=== PATIENT | female | born 1960 | race Caucasian/White ===

== ENCOUNTER 2021-08-16 20:00 | Inpatient (IN) | payer BC ==
[2021-08-16] MEDS ORDERED: Sodium Chloride 0.9% 10 ML Syringe FLUSH PRN (20:17)
[2021-08-16] MEDS ORDERED: Iopamidol 755 Mg/ML 75 ML Bottle IVPUSH ONE (20:35)
[2021-08-16] MEDS ORDERED: Sodium Chloride 0.9% 50 ML IV SCH (20:45)
[2021-08-16 20:59] LABS: ANION GAP 16.3 mmol/L (5-15); CHLORIDE,CL 100 mmol/L (98-107); SODIUM,NA 138 mmol/L (136-145)
--- NOTE | 2021-08-16 21:01 | EDM.PDOC ---
ED HPI GENERAL MEDICAL PROBLEM - General Chief Complaint: General Stated Complaint: Covid+, SOB, chest tightness Time Seen by Provider: 08/16/21 20:43 Source of Information: Reports: Patient History Limitations: Reports: No Limitations - History of Present Illness INITIAL COMMENTS - FREE TEXT/NARRATIVE: Patient presents with dyspnea and chest tightness. Symptoms started 5 days ago. The chest tightness has been intermittent; the dyspnea has been worsening today. She also has emphysema and asthma; she uses Combivent and albuterol inhalers. Yesterday she tested positive for coronavirus and today she got the antibody infusion. She has had some dry-heaves but no diarrhea. She is very tired. Not very achy. No fever. 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: Other (see below) Other Treatments [employer]DI[employer] POLICY SPECIALIST: inhalers - Related Data Allergies Allergy/AdvReac Type Severity Reaction Status Date / Time amoxicillin Allergy Cannot Verified 08/16/21 20:09 Remember amoxicillin trihydrate Allergy Nausea Verified 08/16/21 20:09 [From Augmentin] atorvastatin [From Lipitor] Allergy ANGIOEDEMA Verified 08/16/21 20:09 clavulanic acid Allergy Cannot Verified 08/16/21 20:09 Remember cyclobenzaprine Allergy UNKNOWN Verified 08/16/21 20:09 [From Flexeril] oxycodone Allergy Itching Verified 08/16/21 20:09 potassium clavulanate Allergy Nausea Verified 08/16/21 20:09 [From Augmentin] Home Meds: Home Meds Pseudoephedrine [Sudafed 12 Hour] 1 tab PO DAILY PRN 12/13/14 [History] SUMAtriptan 50 mg PO ASDIRECTED PRN 12/13/14 [History] sulfaSALAzine [Sulfasalazine] 500 mg PO BIDMEALS 12/13/14 [History] Albuterol [Ventolin HFA] 1 - 2 puff INH Q4HR PRN 08/29/15 [History] Escitalopram Oxalate 20 mg PO DAILY 06/20/17 [History] Omeprazole 20 mg PO BIDAC 06/20/17 [History] Verapamil HCl [Verapamil Sr] 240 mg PO DAILY 06/20/17 [History] buPROPion HCL [Wellbutrin Xl] 300 mg PO DAILY 06/20/17 [History] cloNIDine HCL [Catapres] 0.2 mg PO QAM 06/20/17 [History] Nystatin 5 ml PO DAILY 01/10/18 [History] Aspirin 81 mg PO DAILY 08/31/18 [History] Cholecalciferol (Vitamin D3) [Vitamin D3] 2,000 unit PO DAILY 08/31/18 [History] Fenofibrate Nanocrystallized [Fenofibrate] 145 mg PO DAILY 08/31/18 [History] Fluticasone Propionate [Flonase] 1 spray NASBOTH DAILY 08/31/18 [History] Hydrocodone/Acetaminophen [Hydrocodon-Acetaminophen 5-325] 7.5 - 325 mg PO Q6H PRN 08/31/18 [History] Ipratropium/Albuterol Sulfate [Combivent Respimat Inhal [place]] 1 puff IH Q4H PRN 08/31/18 [History] Montelukast [Singulair] 10 mg PO DAILY 08/31/18 [History] Albuterol/Ipratropium [DuoNeb 3.0-0.5 MG/3 ML] 3 ml INH QID PRN 08/16/21 [History] Benzonatate 200 mg PO Q8H PRN 08/16/21 [History] Calcium Carb, Citrate/Vit D3 [Calcium + D3 ER Tablet] 1 each PO DAILY 08/16/21 [History] Famotidine [Pepcid] 40 mg PO BEDTIME 08/16/21 [History] Fluticasone/Umeclidin/Vilanter [Trelegy Ellipta 200-62.5-25] 1 puff INH DAILY 08/16/21 [History] Levothyroxine 150 mcg PO ACBREAKFAST 08/16/21 [History] Lidocaine 2% [Xylocaine 2% Viscous] 15 ml SSPIT Q4H PRN 08/16/21 [History] Losartan Potassium 100 mg PO DAILY 08/16/21 [History] Non-Formulary Medication [NF Drug] 1 tab PO Q48H 08/16/21 [History] Non-Formulary Medication [NF Drug] 2 applic TOP BID PRN 08/16/21 [History] Topiramate 25 mg PO BEDTIME 08/16/21 [History] Vitamin B Complex [B Complex] 1 each PO DAILY 08/16/21 [History] cloNIDine [cloNIDine HCl] 0.1 mg PO QPM 08/16/21 [History] guaiFENesin [Mucinex] 600 mg PO BID 08/16/21 [History] methylPREDNISolone [Medrol Dose Pack] 4 mg PO ASDIRECTED 08/16/21 [History] tiZANidine [Zanaflex] 2 mg PO BEDTIME 08/16/21 [History] Past Medical History HEENT History: Reports: Allergic Rhinitis, Impaired Vision, Other (See Below), Sinusitis Other HEENT History: Recurrent Sinusitis secondary to her allergic rhinitis, patient wears glasses Cardiovascular History: Reports: High Cholesterol, Hypertension Respiratory History: Reports: Asthma, COPD, Intubation, Previous Other Respiratory History: Emphysema Gastrointestinal History: Reports: Cholelithiasis, Gastritis, GERD, Hiatal Hernia, PUD Other Gastrointestinal History: History of gastric ulcer and hiatal hernia with GERD and secondary esophagitis by EGD in August 2016 as below Genitourinary History: Reports: None 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 D defieciency Immunologic History: Reports: None Oncologic (Cancer) History: Reports: None Dermatologic History: Reports: None - Infectious Disease History Infectious Disease History: Reports: Chicken Pox - Past Surgical History HEENT Surgical History: Reports: Adenoidectomy, Naso-Sinus Surgery, Other (See Below), Oral Surgery, Tonsillectomy Female Surgical History: Reports: Hysterectomy, Other (See Below), Salpingo- Oophorectomy, Tubal Ligation Dermatological Surgical History: Reports: Other (See Below), Skin Biopsy - Past Imaging History Past Imaging History: Reports: Mammogram, Stress Testing, Sleep Study Social & Family History - Family History HEENT: Reports: Cataract, Other (See Below) Other HEENT Family History: Father with cataract surgery Cardiac: Reports: Bypass, CAD, Hypertension, SC, Other (See Below) Other Cardiac Family History: Parents with hypertension, mother with four-vessel bypass in her 60s with no apparent previous history of SC by patient history despite previous medical records, father did from an SC at age 82 Respiratory: Reports: Asthma, Other (See Below) Other Respiratory Family Hisory: Asthma in maternal aunt, brother, and sister : Reports: Other (See Below), Renal Disease/Insufficiency Other Family History: Maternal aunt with unknown type of renal disorder requiring nephrectomy Neurological: Reports: Alzheimers Disease, Cerebral Aneurysms, CVA, Dementia, Other (See Below) Other Neurological Family History: Sister with CVA secondary to cerebral aneurysm in her 40s, mother with organic brain syndrome Psychiatric: Reports: Anxiety, Depression, Other (See Below) Other Psychiatric Family History: Anxiety depression disorder in 2 daughters and her mother Endocrine/Metabolic: Reports: Diabetes, type II, IDDM, Other (See Below) Other Endocrine/Metabolic Family History: Mother with IDDM Oncologic: Reports: Leukemia, Other (See Below) Other Oncologic Family History: Maternal aunt with unknown type of fatal cancer in her 60s, daughter with ALL at age 2 - Caffeine Use Caffeine Use: Reports: Coffee, Energy Drinks - Living Situation & Occupation Living situation: Reports: (First divorce in 1986 1 child from that relationship, second divorce in 1992 with child from that relationship), with Significant Other Occupation: Employed ([employer]) ED ROS GENERAL - Review of Systems Review Of Systems: See Below Constitutional: Reports: Malaise, Weakness, Fatigue. Denies: Fever, Chills HEENT: Denies: Ear Pain, Throat Pain, Vision Change Respiratory: Reports: Shortness of Breath, Wheezing, Cough Cardiovascular: Reports: Chest Pain (intermittent tightness for 5 days). Denies: Syncope Endocrine: Reports: Fatigue GI/Abdominal: Reports: Nausea. Denies: Abdominal Pain, Constipation, Diarrhea : Denies: Dysuria, Flank Pain Musculoskeletal: Reports: No Symptoms Skin: Denies: Cyanosis, Jaundice, Mottled, Pallor, Diaphoresis Neurological: Denies: Confusion, Dizziness, Headache, Seizure, Syncope, Trouble Speaking, Difficulty Walking Psychiatric: Denies: Agitation ED EXAM, GENERAL - Physical Exam Exam: See Below Exam Limited By: No Limitations General Appearance: Alert, WD/WN, No Apparent Distress Eye Exam: Bilateral Eye: EOMI, Normal Inspection, PERRL Ears: Normal External Exam, Hearing Grossly Normal Nose: Normal Inspection, No Blood Throat/Mouth: Normal Inspection, Normal Lips, Normal Voice, No Airway Compromise Head: Atraumatic, Normocephalic Neck: Normal Inspection, Full Range of Motion Respiratory/Chest: Crackles (bilat bases), Rhonchi (mild), Wheezing Cardiovascular: Tachycardia (mild, regular) GI/Abdominal: Normal Bowel Sounds, Soft, Non-Tender, No Organomegaly, No Distention Back Exam: Normal Inspection, Full Range of Motion. No: CVA Tenderness (L), CVA Tenderness (R) Extremities: Normal Inspection, Normal Range of Motion Neurological: Alert, Oriented, Normal Cognition, No Motor/Sensory Deficits Psychiatric: Normal Affect, Normal Mood Skin Exam: Warm, Dry, Intact, Normal Color, No Rash Course - Vital Signs Last Recorded V/S: Last Vital Signs Temp 98.0 F 08/16/21 20:02 Pulse 98 08/16/21 22:30 Resp 28 H 08/16/21 22:30 BP 164/104 H 08/16/21 22:30 Pulse Ox 94 L 08/16/21 22:30 - Orders/Labs/Meds Orders: Active Orders 24 hr Category Date Time Status Patient Status Manage Transfer [TRANSFER] Routine ADT 08/16/21 22:55 Active Patient Status [ADT] Routine ADT 08/16/21 22:54 Active Peripheral IV Care [RC] . DIRECTED Care 08/16/21 20:17 Active Ang Chest [CT] Stat Exams 08/16/21 20:19 Ordered CULTURE BLOOD [BC] Stat Lab 08/16/21 23:02 Ordered CULTURE BLOOD [BC] Stat Lab 08/16/21 23:02 Ordered LACTIC ACID [CHEM] Stat Lab 08/16/21 23:01 Ordered Levofloxacin/Dextrose 5%-Water [Levaquin in D5W 500 MG/ Med 08/16/21 22:52 Active 100 ML] 500 mg Premix Bag 1 bag IV ONETIME Sodium Chloride 0.9% [Normal Saline] 50 ml Med 08/16/21 20:45 Active IV ASDIRECTED Sodium Chloride 0.9% [Saline Flush] Med 08/16/21 20:17 Active 10 ml FLUSH Q8HR PRN Blood Culture x2 Reflex Set [OM.PC] Stat Oth 08/16/21 23:01 Ordered Peripheral IV Insertion Adult [OM.PC] Routine Oth 08/16/21 20:17 Ordered EKG 12 Lead [EK] Stat Ther 08/16/21 20:17 Ordered Medication Orders Sodium Chloride (Normal Saline) 50 mls @ 200 mls/min IV ASDIRECTED LILIA Last Admin: 08/16/21 21:24 Dose: 200 mls/min Documented by: SONNY Levofloxacin/Dextrose 500 mg/ (Premix) 100 mls @ 100 mls/hr IV ONETIME ONE Stop: 08/16/21 23:51 Sodium Chloride (Sodium Chloride 0.9% 10 Ml Syringe) 10 ml FLUSH Q8HR PRN PRN Reason: keep vein open Last Admin: 08/16/21 20:27 Dose: 10 ml Documented by: KELY Labs: Laboratory Tests 08/16/21 08/16/21 08/16/21 Range/Units 20:27 20:27 20:27 WBC 5.43 (5.00-10.00) 10^3/uL RBC 4.79 (3.80-5.50) 10^6/uL Hgb 12.7 (12.0-16.0) g/dL Hct 38.5 (37.0-47.0) % MCV 80.4 L D (82.0-92.0) fL MCH 26.5 L (27.0-31.0) pg MCHC 33.0 (32.0-36.0) g/dL RDW 15.9 H (11.5-14.5) % Plt Count 207 D (150-400) 10^3/uL MPV 10.1 (7.4-10.4) fL Immature Gran % (Auto) 0.4 (0.0-5.0) % Neut % (Auto) 64.9 (50.0-70.0) % Lymph % (Auto) 25.8 (20.0-40.0) % [place] % (Auto) 8.3 H (2.0-8.0) % Eos % (Auto) 0.0 L (1.0-3.0) % Baso % (Auto) 0.6 (0.0-1.0) % Neut # (Auto) 3.53 (2.50-7.00) 10^3/uL Lymph # (Auto) 1.40 (1.00-4.00) 10^3/uL [place] # (Auto) 0.45 (0.10-0.80) 10^3/uL Eos # (Auto) 0.00 L (0.10-0.30) 10^3/uL Baso # (Auto) 0.03 (0.00-0.10) 10^3/uL Immature Gran # (Auto) 0.02 (0.00-0.50) 10^3/uL D-Dimer, Quantitative 597 H (<400) ng/mL Sodium 138 (136-145) mmol/L Potassium 3.5 (3.5-5.1) mmol/L Chloride 100 (98-107) mmol/L Carbon Dioxide 25.2 (21.0-32.0) mmol/L Anion Gap 16.3 H (5-15) mmol/L BUN 12 (7-18) mg/dL Creatinine 0.59 (0.51-1.17) mg/dL Est Cr Clr Drug Dosing 88.96 mL/min Estimated GFR (MDRD) > 60 mL/min Glucose 93 (70-140) mg/dL Calcium 8.0 L (8.7-10.3) mg/dL Total Bilirubin 0.3 (0.2-1.0) mg/dL AST 38 H (15-37) U/L ALT 59 (14-63) U/L Alkaline Phosphatase 121 H (46-116) U/L Troponin I High Sens 6.500 (0-51.000) pg/mL Total Protein 7.1 (6.4-8.2) g/dL Albumin 3.09 L (3.40-5.00) g/dL Meds: Medications Generic Name Dose Route Start Last Admin Trade Name Freq PRN Reason Stop Dose Admin Sodium Chloride 50 mls @ 200 mls/min 08/16/21 20:45 08/16/21 21:24 Normal Saline IV 200 mls/min ASDIRECTED LILIA Administration Levofloxacin/Dextrose 500 mg/ 100 mls @ 100 mls/hr 08/16/21 22:52 Premix IV 08/16/21 23:51 ONETIME ONE Sodium Chloride 10 ml 08/16/21 20:17 08/16/21 20:27 Sodium Chloride 0.9% 10 Ml Syringe FLUSH 10 ml Q8HR PRN Administration keep vein open Discontinued Medications Generic Name Dose Route Start Last Admin Trade Name Freq PRN Reason Stop Dose Admin Sodium Chloride 1,000 mls @ 999 mls/hr 08/16/21 21:06 08/16/21 21:26 Normal Saline IV 08/16/21 22:06 999 mls/hr .BOLUS ONE Administration Iopamidol 75 ml 08/16/21 20:35 08/16/21 21:24 Iopamidol 755 Mg/Ml 75 Ml Bottle IVPUSH 08/16/21 20:36 75 ml ONETIME ONE Administration Methylprednisolone Sodium Succinate 40 mg 08/16/21 22:52 Methylprednisolone Sodium Succinate 125 Mg/2 Ml Sdv IVPUSH 08/16/21 22:53 ONETIME ONE - Re-Assessments/Exams Free Text/Narrative Re-Assessment/Exam: 08/16/21 23:02 WBC, trop, EKG okay. D-dimer elevated. Chest CT shows no definite PE but does show bilat multifocal groundglass infiltrates. Patient is requiring 1-2 liters of oxygen to maintain 94% sats. Discussed case with Dr. Palacios who thinks maybe should try sending to [place] or [place]. I callled [facility] but they will only take if requiring 10+ liters of oxygen. [facility] is full but may have room tomorrow. Dr. Palacios accepted for admission here. Patient stable at admission. Departure - Departure Time of Disposition: 23:00 Disposition: Admitted As Inpatient 65 Condition: Good Clinical Impression: Hypoxemia, Pneumonia due to COVID-19 virus - Discharge Information Referrals: Silvia Ocasio, PARKING LOT MANAGER [Primary Care Provider] - Forms: ED Department Discharge Sepsis Event Note (ED) - Evaluation Sepsis Screening Result: Possible Sepsis Risk - Focused Exam Vital Signs: Vital Signs Temp Pulse Resp BP Pulse Ox 08/16/21 22:30 98 28 H 164/104 H 94 L 08/16/21 22:15 98 28 H 171/101 H 94 L 08/16/21 22:00 95 28 H 173/108 H 97 08/16/21 21:45 98 28 H 164/107 H 96 08/16/21 21:30 95 28 H 164/98 H 96 08/16/21 21:00 106 H 118/79 94 L 08/16/21 20:45 102 H 133/95 H 90 L 08/16/21 20:30 105 H 20 125/93 H 91 L 08/16/21 20:15 104 H 130/89 92 L 08/16/21 20:12 93 L 08/16/21 20:02 98.0 F 98 24 H 146/98 H 96 - My Orders Last 24 Hours: My Active Orders 08/16/21 20:17 Peripheral IV Care [RC] . DIRECTED Sodium Chloride 0.9% [Saline Flush] 10 ml FLUSH Q8HR PRN Peripheral IV Insertion Adult [OM.PC] Routine EKG 12 Lead [EK] Stat 08/16/21 20:19 Ang Chest [CT] Stat 08/16/21 20:45 Sodium Chloride 0.9% [Normal Saline] 50 ml IV ASDIRECTED 08/16/21 22:52 Levofloxacin/Dextrose 5%-Water [Levaquin in D5W 500 MG/100 ML] 500 mg Premix Bag 1 bag IV ONETIME 08/16/21 22:54 Patient Status [ADT] Routine 08/16/21 22:55 Patient Status Manage Transfer [TRANSFER] Routine 08/16/21 23:01 LACTIC ACID [CHEM] Stat Blood Culture x2 Reflex Set [OM.PC] Stat 08/16/21 23:02 CULTURE BLOOD [BC] Stat CULTURE BLOOD [BC] Stat - Assessment/Plan Last 24 Hours: My Active Orders 08/16/21 20:17 Peripheral IV Care [RC] . DIRECTED Sodium Chloride 0.9% [Saline Flush] 10 ml FLUSH Q8HR PRN Peripheral IV Insertion Adult [OM.PC] Routine EKG 12 Lead [EK] Stat 08/16/21 20:19 Ang Chest [CT] Stat 08/16/21 20:45 Sodium Chloride 0.9% [Normal Saline] 50 ml IV ASDIRECTED 08/16/21 22:52 Levofloxacin/Dextrose 5%-Water [Levaquin in D5W 500 MG/100 ML] 500 mg Premix Bag 1 bag IV ONETIME 08/16/21 22:54 Patient Status [ADT] Routine 08/16/21 22:55 Patient Status Manage Transfer [TRANSFER] Routine 08/16/21 23:01 LACTIC ACID [CHEM] Stat Blood Culture x2 Reflex Set [OM.PC] Stat 08/16/21 23:02 CULTURE BLOOD [BC] Stat CULTURE BLOOD [BC] Stat
[2021-08-16] MEDS ORDERED: Sodium Chloride 0.9% 1,000 ML IV ONE (21:06)
[2021-08-16] MEDS ORDERED: Levofloxacin/Dextrose 5%-Water 500 MG in Premix Bag 1 BAG IV ONE (22:52)
[2021-08-16] MEDS ORDERED: methylPREDNISolone Sodium Succinate 125 MG/2 ML SDV IVPUSH ONE (22:52)
[2021-08-17] MEDS ORDERED: Albuterol/Ipratropium 3.0-0.5 MG/3 ML Neb Soln NEB PRN (00:12)
[2021-08-17] MEDS ORDERED: Sodium Chloride 0.9% 50 ML ONE (00:25)
[2021-08-17] MEDS ORDERED: Sodium Chloride 0.9% 1,000 ML IV SCH (00:45)
[2021-08-17] MEDS ORDERED: Sodium Chloride 0.9% 50 ML IV SCH (01:15)
[2021-08-17] MEDS: Albuterol 8 GM Inhaler INH PRN ×3 (02:47→19:54)
[2021-08-17 06:33] LABS: O2 DELIVERY DEVICE NASAL CANNULA; O2 SATURATION ARTERIAL 92 % (95-98); PCO2 ARTERIAL 32 mmHG (35-45); PO2 ARTERIAL 61 mmHG (80-105)
[2021-08-17 06:34] LABS: BASE EXCESS ARTERIAL -1 mmol/L (-2-3); BICARBONATE,ARTERIAL 21.9 mmol/L (22-26)
[2021-08-17 06:58] LABS: ANION GAP 16.1 mmol/L (5-15); CHLORIDE,CL 103 mmol/L (98-107); SODIUM,NA 140 mmol/L (136-145)
[2021-08-17 10:28] LABS: PTT,PARTIAL THROMBOPLSTIN TIME 25.9 SEC (22.8-31.4)
[2021-08-17] MEDS: Fluticasone Propionate Nasal Spray 16 GM Bottle NASBOTH SCH (10:36)
[2021-08-17] MEDS: guaiFENesin 600 MG Tab.ER PO SCH ×2 (10:36→20:00)
[2021-08-17] MEDS: Montelukast 10 MG Tab PO SCH (10:36)
[2021-08-17] MEDS ORDERED: REMDESIVIR 200 MG in Sodium Chloride 0.9% 250 ML IV ONE (10:47)
--- NOTE | 2021-08-17 10:51 | PCM.HP.2 ---
H&P History of Present Illness - General Date of Service: 08/17/21 Admit Problem/Dx: Admission Diagnosis/Problem Admission Diagnosis/Problem Hypoxemia requiring supplemental oxygen - Related Data Allergies/Adverse Reactions: Allergies Allergy/AdvReac Type Severity Reaction Status Date / Time amoxicillin Allergy Cannot Verified 08/16/21 20:09 Remember amoxicillin trihydrate Allergy Nausea Verified 08/16/21 20:09 [From Augmentin] atorvastatin [From Lipitor] Allergy ANGIOEDEMA Verified 08/16/21 20:09 clavulanic acid Allergy Cannot Verified 08/16/21 20:09 Remember cyclobenzaprine Allergy UNKNOWN Verified 08/16/21 20:09 [From Flexeril] oxycodone Allergy Itching Verified 08/16/21 20:09 potassium clavulanate Allergy Nausea Verified 08/16/21 20:09 [From Augmentin] Home Medications: Home Meds Pseudoephedrine [Sudafed 12 Hour] 1 tab PO DAILY PRN 12/13/14 [History] SUMAtriptan 50 mg PO ASDIRECTED PRN 12/13/14 [History] sulfaSALAzine [Sulfasalazine] 500 mg PO BIDMEALS 12/13/14 [History] Albuterol [Ventolin HFA] 1 - 2 puff INH Q4HR PRN 08/29/15 [History] Escitalopram Oxalate 20 mg PO DAILY 06/20/17 [History] Omeprazole 20 mg PO BIDAC 06/20/17 [History] Verapamil HCl [Verapamil Sr] 240 mg PO DAILY 06/20/17 [History] buPROPion HCL [Wellbutrin Xl] 300 mg PO DAILY 06/20/17 [History] cloNIDine HCL [Catapres] 0.2 mg PO QAM 06/20/17 [History] Nystatin 5 ml PO DAILY 01/10/18 [History] Aspirin 81 mg PO DAILY 08/31/18 [History] Cholecalciferol (Vitamin D3) [Vitamin D3] 2,000 unit PO DAILY 08/31/18 [History] Fenofibrate Nanocrystallized [Fenofibrate] 145 mg PO DAILY 08/31/18 [History] Fluticasone Propionate [Flonase] 1 spray NASBOTH DAILY 08/31/18 [History] Hydrocodone/Acetaminophen [Hydrocodon-Acetaminophen 5-325] 7.5 - 325 mg PO Q6H PRN 08/31/18 [History] Ipratropium/Albuterol Sulfate [Combivent Respimat Inhal Post] 1 puff IH Q4H PRN 08/31/18 [History] Montelukast [Singulair] 10 mg PO DAILY 08/31/18 [History] Albuterol/Ipratropium [DuoNeb 3.0-0.5 MG/3 ML] 3 ml INH QID PRN 08/16/21 [History] Benzonatate 200 mg PO Q8H PRN 08/16/21 [History] Calcium Carb, Citrate/Vit D3 [Calcium + D3 ER Tablet] 1 each PO DAILY 08/16/21 [History] Famotidine [Pepcid] 40 mg PO BEDTIME 08/16/21 [History] Fluticasone/Umeclidin/Vilanter [Trelegy Ellipta 200-62.5-25] 1 puff INH DAILY 08/16/21 [History] Levothyroxine 150 mcg PO ACBREAKFAST 08/16/21 [History] Lidocaine 2% [Xylocaine 2% Viscous] 15 ml SSPIT Q4H PRN 08/16/21 [History] Losartan Potassium 100 mg PO DAILY 08/16/21 [History] Non-Formulary Medication [NF Drug] 1 tab PO Q48H 08/16/21 [History] Non-Formulary Medication [NF Drug] 2 applic TOP BID PRN 08/16/21 [History] Topiramate 25 mg PO BEDTIME 08/16/21 [History] Vitamin B Complex [B Complex] 1 each PO DAILY 08/16/21 [History] cloNIDine [cloNIDine HCl] 0.1 mg PO QPM 08/16/21 [History] guaiFENesin [Mucinex] 600 mg PO BID 08/16/21 [History] methylPREDNISolone [Medrol Dose Pack] 4 mg PO ASDIRECTED 08/16/21 [History] tiZANidine [Zanaflex] 2 mg PO BEDTIME 08/16/21 [History] Past Medical History HEENT History: Reports: Allergic Rhinitis, Impaired Vision, Other (See Below), Sinusitis Other HEENT History: Recurrent Sinusitis secondary to her allergic rhinitis, patient wears glasses Cardiovascular History: Reports: High Cholesterol, Hypertension Respiratory History: Reports: Asthma, COPD, Intubation, Previous Other Respiratory History: Emphysema Gastrointestinal History: Reports: Cholelithiasis, Gastritis, GERD, Hiatal Hernia, PUD Other Gastrointestinal History: History of gastric ulcer and hiatal hernia with GERD and secondary esophagitis by EGD in August 2016 as below Genitourinary History: Reports: None DUCT INSTALLER History: Reports: Dysfunctional Uterine Bleeding, Musculoskeletal History: Reports: Arthritis, Back Pain, Chronic, Osteoarthritis, RA Neurological History: Reports: Headaches, Chronic, Migraines Psychiatric History: Reports: Anxiety, Depression Endocrine/Metabolic History: Reports: Hypothyroidism, Obesity/BMI 30+, Vitamin D Deficiency Hematologic History: Reports: None Other Hematologic History: Vit. D defieciency Immunologic History: Reports: None Oncologic (Cancer) History: Reports: None Dermatologic History: Reports: None - Infectious Disease History Infectious Disease History: Reports: Chicken Pox, Novel Coronavirus Other Infectious Disease History: Covid+ 08/15/21 - Past Surgical History Head Surgeries/Procedures: Reports: None HEENT Surgical History: Reports: Adenoidectomy, Naso-Sinus Surgery, Other (See Below), Oral Surgery, Tonsillectomy Other HEENT Surgeries/Procedures: Multiple teeth extractions, including [place] teeth extraction 4 at about age 13, sinus surgery of unknown type in March 2016, tonsillectomy and adenoidectomy at about age 11 Cardiovascular Surgical History: Reports: None Respiratory Surgical History: Reports: None GI Surgical History: Reports: Cholecystectomy, Colonoscopy, EGD, Other (See Below) Other GI Surgeries/Procedures: Colonoscopy in about 2009, EGD on 08/24/16, laparoscopic cholecystectomy in about 2012 Female Surgical History: Reports: Hysterectomy, Other (See Below), Salpingo-Oophorectomy, Tubal Ligation Other Female Surgeries/Procedures: Left sided breast biopsy for benign disease at about age 31, bilateral tubal ligation at age 31, complete hystere ctomy including bilateral salpingo-oophorectomy secondary to dysfunctional uterine bleeding in 2006 Endocrine Surgical History: Reports: None Neurological Surgical History: Reports: None Musculoskeletal Surgical History: Reports: Carpal Tunnel, Ganglion Cyst, Other (See Below) Other Musculoskeletal Surgeries/Procedures:: Ganglion cyst excision from the left wrist in her 20s, hammertoe repair of 4 toes of the right foot in about 2010, right carpal tunnel release and excision of ganglion cyst in 2013 Oncologic Surgical History: Reports: None Dermatological Surgical History: Reports: Other (See Below), Skin Biopsy - Past Imaging History Past Imaging History: Reports: Mammogram, Stress Testing, Sleep Study Social & Family History - Family History HEENT: Reports: Cataract, Other (See Below) Other HEENT Family History: Father with cataract surgery Cardiac: Reports: Bypass, CAD, Hypertension, CO, Other (See Below) Other Cardiac Family History: Parents with hypertension, mother with four-vessel bypass in her 60s with no apparent previous history of CO by patient history despite previous medical records, father did from an CO at age 82 Respiratory: Reports: Asthma, Other (See Below) Other Respiratory Family Hisory: Asthma in maternal aunt, brother, and sister : Reports: Other (See Below), Renal Disease/Insufficiency Other Family History: Maternal aunt with unknown type of renal disorder requiring nephrectomy Neurological: Reports: Alzheimers Disease, Cerebral Aneurysms, CVA, Dementia, Other (See Below) Other Neurological Family History: Sister with CVA secondary to cerebral aneurysm in her 40s, mother with organic brain syndrome Psychiatric: Reports: Anxiety, Depression, Other (See Below) Other Psychiatric Family History: Anxiety depression disorder in 2 daughters and her mother Endocrine/Metabolic: Reports: Diabetes, type II, IDDM, Other (See Below) Other Endocrine/Metabolic Family History: Mother with IDDM Oncologic: Reports: Leukemia, Other (See Below) Other Oncologic Family History: Maternal aunt with unknown type of fatal cancer in her 60s, daughter with ALL at age 2 - Tobacco Use Tobacco Use Status *Q: Current Every Day Tobacco User Years of Tobacco use: 50 Packs/Tins Daily: 0.5 - Caffeine Use Caffeine Use: Reports: Coffee, Energy Drinks, Soda - Recreational Drug Use Recreational Drug Use: No - Living Situation & Occupation Living situation: Reports: (First divorce in 1986 1 child from that relationship, second divorce in 1992 with child from that relationship), with Significant Other Occupation: Employed ([employer]) H&P Review of Systems - Review of Systems: Review Of Systems: See Below General: Reports: Weakness, Fatigue, Decreased Appetite HEENT: Reports: Headaches Pulmonary: Reports: Shortness of Breath, Wheezing, Pleuritic Chest Pain, Cough, Sputum. Denies: Hemoptysis Cardiovascular: Reports: Dyspnea on Exertion. Denies: Edema Gastrointestinal: Reports: Diarrhea Genitourinary: Reports: No Symptoms Musculoskeletal: Reports: No Symptoms Skin: Reports: No Symptoms Psychiatric: Reports: No Symptoms Neurological: Reports: No Symptoms Hematologic/Lymphatic: Reports: No Symptoms Immunologic: Reports: No Symptoms Exam - Exam Exam: See Below - Vital Signs Vital Signs: Last Vital Signs Temp 97.0 F 08/17/21 05:40 Pulse 99 08/17/21 05:40 Resp 20 08/17/21 05:40 BP 125/84 08/17/21 05:40 Pulse Ox 92 L 08/17/21 05:40 Weight: 184 lb - Exam Quality Assessment: Supplemental Oxygen, DVT Prophylaxis. No: Urinary Catheter General: Alert, Oriented, Cooperative HEENT: Conjunctiva Clear, Mucosa Moist & Anatone Neck: Supple, Trachea Midline Lungs: Decreased Breath Sounds, Crackles, Rales, Rhonchi, Wheezing Cardiovascular: Regular Rate, Regular Rhythm. No: Systolic Murmur GI/Abdominal Exam: Normal Bowel Sounds, Soft, Non-Tender, No Distention (Female) Exam: Deferred Rectal (Female) Exam: Deferred Back Exam: Normal Inspection, Full Range of Motion Extremities: Normal Inspection, Normal Range of Motion, Non-Tender, No Pedal Edema, Normal Capillary Refill Skin: Warm, Dry, Intact Neuro Extensive - Mental Status: Alert, Oriented x3, Normal Mood/Affect, Normal Cognition, Memory Intact Psychiatric: Alert, Normal Affect, Normal Mood - Patient Data Lab Results Last 24 hrs: Laboratory Results - last 24 hr 08/16/21 08/16/21 08/16/21 Range/Units 20:27 20:27 20:27 WBC 5.43 (5.00-10.00) 10^3/uL RBC 4.79 (3.80-5.50) 10^6/uL Hgb 12.7 (12.0-16.0) g/dL Hct 38.5 (37.0-47.0) % MCV 80.4 L D (82.0-92.0) fL MCH 26.5 L (27.0-31.0) pg MCHC 33.0 (32.0-36.0) g/dL RDW 15.9 H (11.5-14.5) % Plt Count 207 D (150-400) 10^3/uL MPV 10.1 (7.4-10.4) fL Immature Gran % (Auto) 0.4 (0.0-5.0) % Neut % (Auto) 64.9 (50.0-70.0) % Lymph % (Auto) 25.8 (20.0-40.0) % [place] % (Auto) 8.3 H (2.0-8.0) % Eos % (Auto) 0.0 L (1.0-3.0) % Baso % (Auto) 0.6 (0.0-1.0) % Neut # (Auto) 3.53 (2.50-7.00) 10^3/uL Lymph # (Auto) 1.40 (1.00-4.00) 10^3/uL [place] # (Auto) 0.45 (0.10-0.80) 10^3/uL Eos # (Auto) 0.00 L (0.10-0.30) 10^3/uL Baso # (Auto) 0.03 (0.00-0.10) 10^3/uL Immature Gran # (Auto) 0.02 (0.00-0.50) 10^3/uL PT (9.2-11.2) SEC INR (0.9-1.1) APTT (22.8-31.4) SEC D-Dimer, Quantitative 597 H (<400) ng/mL ABG pH (7.35-7.45) ABG pCO2 (35-45) mmHG ABG pO2 (80-105) mmHG ABG HCO3 (22-26) mmol/L ABG Total CO2 (23-27) mmol/L ABG O2 Saturation (95-98) % ABG Base Excess (-2-3) mmol/L O2 Delivery Device Sodium 138 (136-145) mmol/L Potassium 3.5 (3.5-5.1) mmol/L Chloride 100 (98-107) mmol/L Carbon Dioxide 25.2 (21.0-32.0) mmol/L Anion Gap 16.3 H (5-15) mmol/L BUN 12 (7-18) mg/dL Creatinine 0.59 (0.51-1.17) mg/dL Est Cr Clr Drug Dosing 88.96 mL/min Estimated GFR (MDRD) > 60 mL/min Glucose 93 (70-140) mg/dL Lactic Acid (0.4-2.0) mmol/L Calcium 8.0 L (8.7-10.3) mg/dL Total Bilirubin 0.3 (0.2-1.0) mg/dL AST 38 H (15-37) U/L ALT 59 (14-63) U/L Alkaline Phosphatase 121 H (46-116) U/L Troponin I High Sens 6.500 (0-51.000) pg/mL C-Reactive Protein (0.0-0.9) mg/dL Total Protein 7.1 (6.4-8.2) g/dL Albumin 3.09 L (3.40-5.00) g/dL 08/16/21 08/17/21 08/17/21 Range/Units 23:40 06:20 06:20 WBC 5.16 (5.00-10.00) 10^3/uL RBC 4.85 (3.80-5.50) 10^6/uL Hgb 12.5 (12.0-16.0) g/dL Hct 39.2 (37.0-47.0) % MCV 80.8 L (82.0-92.0) fL MCH 25.8 L (27.0-31.0) pg MCHC 31.9 L (32.0-36.0) g/dL RDW 16.0 H (11.5-14.5) % Plt Count 222 (150-400) 10^3/uL MPV 9.9 (7.4-10.4) fL Immature Gran % (Auto) 0.4 (0.0-5.0) % Neut % (Auto) 83.5 H (50.0-70.0) % Lymph % (Auto) 12.0 L (20.0-40.0) % [place] % (Auto) 3.9 (2.0-8.0) % Eos % (Auto) 0.0 L (1.0-3.0) % Baso % (Auto) 0.2 (0.0-1.0) % Neut # (Auto) 4.31 (2.50-7.00) 10^3/uL Lymph # (Auto) 0.62 L (1.00-4.00) 10^3/uL [place] # (Auto) 0.20 (0.10-0.80) 10^3/uL Eos # (Auto) 0.00 L (0.10-0.30) 10^3/uL Baso # (Auto) 0.01 (0.00-0.10) 10^3/uL Immature Gran # (Auto) 0.02 (0.00-0.50) 10^3/uL PT (9.2-11.2) SEC INR (0.9-1.1) APTT (22.8-31.4) SEC D-Dimer, Quantitative (<400) ng/mL ABG pH 7.45 (7.35-7.45) ABG pCO2 32 L (35-45) mmHG ABG pO2 61 L (80-105) mmHG ABG HCO3 21.9 L (22-26) mmol/L ABG Total CO2 22 L (23-27) mmol/L ABG O2 Saturation 92 L (95-98) % ABG Base Excess -1 (-2-3) mmol/L O2 Delivery Device Nasal cannula Sodium (136-145) mmol/L Potassium (3.5-5.1) mmol/L Chloride (98-107) mmol/L Carbon Dioxide (21.0-32.0) mmol/L Anion Gap (5-15) mmol/L BUN (7-18) mg/dL Creatinine (0.51-1.17) mg/dL Est Cr Clr Drug Dosing mL/min Estimated GFR (MDRD) mL/min Glucose (70-140) mg/dL Lactic Acid 0.8 (0.4-2.0) mmol/L Calcium (8.7-10.3) mg/dL Total Bilirubin (0.2-1.0) mg/dL AST (15-37) U/L ALT (14-63) U/L Alkaline Phosphatase (46-116) U/L Troponin I High Sens (0-51.000) pg/mL C-Reactive Protein (0.0-0.9) mg/dL Total Protein (6.4-8.2) g/dL Albumin (3.40-5.00) g/dL 08/17/21 08/17/21 08/17/21 Range/Units 06:20 06:20 10:15 WBC (5.00-10.00) 10^3/uL RBC (3.80-5.50) 10^6/uL Hgb (12.0-16.0) g/dL Hct (37.0-47.0) % MCV (82.0-92.0) fL MCH (27.0-31.0) pg MCHC (32.0-36.0) g/dL RDW (11.5-14.5) % Plt Count (150-400) 10^3/uL MPV (7.4-10.4) fL Immature Gran % (Auto) (0.0-5.0) % Neut % (Auto) (50.0-70.0) % Lymph % (Auto) (20.0-40.0) % [place] % (Auto) (2.0-8.0) % Eos % (Auto) (1.0-3.0) % Baso % (Auto) (0.0-1.0) % Neut # (Auto) (2.50-7.00) 10^3/uL Lymph # (Auto) (1.00-4.00) 10^3/uL [place] # (Auto) (0.10-0.80) 10^3/uL Eos # (Auto) (0.10-0.30) 10^3/uL Baso # (Auto) (0.00-0.10) 10^3/uL Immature Gran # (Auto) (0.00-0.50) 10^3/uL PT 8.9 L (9.2-11.2) SEC INR 0.9 (0.9-1.1) APTT 25.9 (22.8-31.4) SEC D-Dimer, Quantitative (<400) ng/mL ABG pH (7.35-7.45) ABG pCO2 (35-45) mmHG ABG pO2 (80-105) mmHG ABG HCO3 (22-26) mmol/L ABG Total CO2 (23-27) mmol/L ABG O2 Saturation (95-98) % ABG Base Excess (-2-3) mmol/L O2 Delivery Device Sodium 140 (136-145) mmol/L Potassium 3.9 (3.5-5.1) mmol/L Chloride 103 (98-107) mmol/L Carbon Dioxide 24.8 (21.0-32.0) mmol/L Anion Gap 16.1 H (5-15) mmol/L BUN 9 (7-18) mg/dL Creatinine 0.50 L (0.51-1.17) mg/dL Est Cr Clr Drug Dosing 104.98 mL/min Estimated GFR (MDRD) > 60 mL/min Glucose 142 H (70-140) mg/dL Lactic Acid (0.4-2.0) mmol/L Calcium 7.8 L (8.7-10.3) mg/dL Total Bilirubin (0.2-1.0) mg/dL AST (15-37) U/L ALT (14-63) U/L Alkaline Phosphatase (46-116) U/L Troponin I High Sens (0-51.000) pg/mL C-Reactive Protein 11.8 H (0.0-0.9) mg/dL Total Protein (6.4-8.2) g/dL Albumin (3.40-5.00) g/dL Result Diagrams: 08/18/21 07:55 08/18/21 07:55 Sepsis Event Note - Evaluation Sepsis Screening Result: Sepsis Risk - Focused Exam Vital Signs: Vital Signs Temp Pulse Resp BP BP Pulse Ox 08/17/21 05:40 97.0 F 99 20 125/84 92 L 08/17/21 02:48 97.2 F 103 H 20 120/83 92 L 08/17/21 01:26 99 08/17/21 01:24 98 08/16/21 23:45 96.7 F L 99 24 H 132/83 92 L 08/16/21 23:15 98.4 F 100 24 H 153/101 H 92 L 08/16/21 23:00 99 161/103 H 92 L 08/16/21 22:45 97 162/101 H 92 L Problem List Initiated/Reviewed/Updated: Yes Orders Last 24hrs: Active Orders 24 hr Category Date Time Status Nurse Communication: Isolation [RC] ASDIRECTED Care 08/17/21 09:05 Active RT Post Treatment Assessment [RC] Click to Edit Care 08/16/21 23:56 Active RT Pre-Treatment Assessment [RC] Click to Edit Care 08/16/21 23:56 Active Ang Chest [CT] Stat Exams 08/16/21 20:19 Taken CULTURE BLOOD [BC] Stat Lab 08/16/21 23:40 Received CULTURE BLOOD [BC] Stat Lab 08/16/21 23:55 Received Albuterol [Ventolin HFA] Med 08/16/21 23:54 Active 0 gm INH Q4HR PRN Albuterol/Ipratropium [DuoNeb 3.0-0.5 MG/3 ML] Med 08/17/21 00:12 Active 3 ml NEB Q4H PRN Escitalopram [Lexapro] Med 08/18/21 09:00 Active 20 mg PO DAILY Fluticasone Propionate [Flonase] Med 08/17/21 10:15 Active 0 gm NASBOTH DAILY Levothyroxine Med 08/18/21 07:30 Active 150 mcg PO ACBREAKFAST Montelukast [Singulair] Med 08/17/21 10:15 Active 10 mg PO DAILY Pantoprazole [ProTONIX] Med 08/17/21 17:30 Active 40 mg PO BIDAC Patient's Own Medication [Ptom] Med 08/18/21 09:00 Active 1 each INH DAILY Sodium Chloride 0.9% [Normal Saline] 50 ml Med 08/17/21 01:15 Active IV ASDIRECTED buPROPion [Wellbutrin XL] Med 08/18/21 09:00 Active 300 mg PO DAILY guaiFENesin [Mucinex] Med 08/17/21 10:15 Active 600 mg PO BID Blood Culture x2 Reflex Set [OM.PC] Stat Oth 08/16/21 23:01 Ordered Isolation [COMM] Routine Oth 08/17/21 09:04 Ordered EKG 12 Lead [EK] Stat Ther 08/16/21 20:17 Stop Req Medication Orders Albuterol (Albuterol 8 Gm Inhaler) 0 gm INH Q4HR PRN PRN Reason: Dyspnea Last Admin: 08/17/21 10:32 Dose: 2 puff Documented by: Admin: 08/17/21 02:47 Dose: 2 puff Documented by: QUIN Albuterol/Ipratropium (Albuterol/Ipratropium 3.0-0.5 Mg/3 Ml Neb Soln) 3 ml NEB Q4H PRN PRN Reason: Shortness of Breath Last Admin: 08/17/21 00:31 Dose: 3 ml Documented by: QUIN Bupropion HCl (Bupropion 150 Mg Tab.Er) 300 mg PO DAILY LILIA Escitalopram Oxalate (Escitalopram 10 Mg Tab) 20 mg PO DAILY [facility] Fluticasone Propionate (Fluticasone Propionate Nasal Post 16 Gm Bottle) 0 gm NASBOTH DAILY [facility] Last Admin: 08/17/21 10:36 Dose: 2 spray Documented by: ELIJAH Guaifenesin (Guaifenesin 600 Mg Tab.Er) 600 mg PO BID [facility] Last Admin: 08/17/21 10:36 Dose: 600 mg Documented by: ELIJAH Sodium Chloride (Normal Saline) 50 mls @ 100 mls/hr IV ASDIRECTED [facility] Last Admin: 08/17/21 01:13 Dose: 100 mls/hr Documented by: QUIN Levothyroxine Sodium (Levothyroxine 75 Mcg Tab) 150 mcg PO ACBREAKFAST [facility] Montelukast Sodium (Montelukast 10 Mg Tab) 10 mg PO DAILY [facility] Last Admin: 08/17/21 10:36 Dose: 10 mg Documented by: ELIJAH Pantoprazole Sodium (Pantoprazole 40 Mg Tab.Cr) 40 mg PO BIDAC [facility] Ptom- Trelegy (Inhaler) 1 each INH DAILY [facility] Assessment/Plan Comment:: HPI summary: Piper is a 61yF patient with a 5 day hx of increased dyspnea and chest tightness. Patient was started on a medrol dose pack for bronchitis on 08/11. Initial COVID test was negative on 08/08/21, COVID test was positive on 08/15/21 and patient received monoclonal antibody treatment at [facility] yesterday prior to presenting to the ER last evening for worsening dyspnea r/t COVID-19. PMH includes emphysema, moderate persistent asthma and current smoking, though patient indicates that she is now trying to quit. ED course: EKG NSR. D-dimer 597, CTA negative for PE - indicated ground glass opacities bilaterally. 1L NS bolus in ER, solumedrol 40mg IV x 1 dose and initial dose of levaquin 750mg IV after blood cultures were obtained. Patient requiring supplemental oxygen to maintain O2 sat > 90%, patient admitted to inpatient status per Dr Palacios. Hospital course: 08/17/21: No calls overnight after admission. Breathing reportedly improved wi th oxygen. Dyspnea and cough continue. Intermittent nausea and diarrhea. O2 stable on minimal O2 at 2L. Vitals stable, afebrile. WBC 5.16, Hgb 12.5, Plt 222. Na 140, K 3.9, BUN 9, Creatinine 0.50, lactic acid 0.8, AST 38, alk phos 121, trop negative, albumin 3.09. CRP 11.8. ABG's stable - pH 7.45, PCO2 32, HCO3 21.9. Lung sounds diminished with crackles, rhonchi and wheezing. Patient declines nicotine patch, states she is going to try to quit smoking. Zofran o rdered PRN for nausea. Hospitalization problems and plan: # COVID-19 # COVID Pneumonia - empiric antibiotics of levaquin provided given underlying emphysema # Hypoxia # COPD # Moderate persistent asthma # Elevated CRP - 11.8 today - Continue supplemental oxygen to maintain O2 sat > 90% - BC x 2 pending - Levaquin 750mg IV daily - Remdesevir 200mg IV x 1, then 100mg IV daily x 4 doses - Lovenox 40mg subq daily - Dexamethasone 6mg PO daily x 5 days as patient was already on medrol dose pack for 5 days - Adjunctive tx: zinc, vitamin C, Vitamin D - IS 10x/hr while awake - Repeat CBC, CMP, CRP, Mg in am Chronic, stable conditions: # HTN - takes clonidine 0.2mg in am, 0.1mg HS; losartan 100mg PO daily; verapamil 240mg PO daily - on hold # Cardiomyopathy - takes aspirin 81mg PO daily - on hold # Emphysema - takes trelegy, albuterol inhaler PRN, duonebs PRN and combivent # Moderate persistent asthma - continue singulair 10mg PO daily, flonase # Chronic maxillary sinusitis # Hypothyroidism - continue levothyroxine 150mcg PO daily # Pure hypercholesterolemia - takes fenofibrate 145mg PO daily # GERD - Continue prilosec 20mg PO BID, takes pepcid 40mg HS # Reactive arthritis - takes sulfasalazine 500mg PO BID # Chronic low back pain # Depression/anxiety - continue wellbutrin 300mg PO daily, lexapro 20mg PO daily # Migraine - takes sumatriptan 100mg (1/2 tab at onset of headache, may repeat after 2 hours if needed); topamax 25mg PO daily # Arthropathy associated with GI conditions other than infectious # Tobacco abuse # Obesity Hospitalization details: # FEN: Oral fluids, electrolytes stable, regular diet # PPX: Lovenox 40mg subq daily, omeprazole 20mg PO BID # Code status: FULL CODE # Emergency contact: , Tang [phone] # Disposition: Patient admitted on inpatient status for treatment of COVID pneumonia, supplemental oxygen. Anticipate > 2 midnights for treatment of hospital problems.
[2021-08-17] MEDS: Ascorbic Acid 500 MG Tab PO SCH ×2 (13:34→20:00)
[2021-08-17] MEDS: Cholecalciferol (Vitamin D3) 25 MCG Tab PO SCH (13:34)
[2021-08-17] MEDS: Enoxaparin 40 MG/0.4 ML Syringe SUBCUT SCH (13:34)
[2021-08-17] MEDS: Dexamethasone 4 MG Tab PO SCH (13:34)
[2021-08-17] MEDS: Zinc (Zinc Gluconate) 50 MG Tab PO SCH (13:34)
[2021-08-17] MEDS: Acetaminophen 325 MG Tab PO PRN ×2 (15:28→22:10)
[2021-08-17] MEDS: Losartan 50 MG Tab PO SCH (17:34)
[2021-08-17] MEDS: sulfaSALAzine 500 MG Tab PO SCH (17:34)
[2021-08-17] MEDS: Pantoprazole 40 MG Tab.CR PO SCH (17:35)
[2021-08-17] MEDS: Topiramate 25 MG Tab PO SCH (20:00)
[2021-08-17] MEDS: Levofloxacin/Dextrose 5%-Water 750 MG in Premix Bag 1 BAG IV SCH (20:00)
[2021-08-17] MEDS: cloNIDine 0.1 MG Tab PO SCH (20:00)
[2021-08-18] MEDS: Albuterol 8 GM Inhaler INH PRN (02:29)
[2021-08-18] MEDS: Acetaminophen 325 MG Tab PO PRN ×3 (02:29→21:29)
[2021-08-18] MEDS: SUMAtriptan 25 MG Tab PO PRN ×3 (02:50→21:29)
[2021-08-18] MEDS: Pantoprazole 40 MG Tab.CR PO SCH ×3 (06:06→17:03)
[2021-08-18] MEDS: Levothyroxine 75 MCG Tab PO SCH ×2 (06:06→06:38)
[2021-08-18 08:26] LABS: CHLORIDE,CL 105 mmol/L (98-107); SODIUM,NA 143 mmol/L (136-145)
[2021-08-18] MEDS: guaiFENesin 600 MG Tab.ER PO SCH ×2 (08:47→20:57)
[2021-08-18] MEDS: Losartan 50 MG Tab PO SCH (08:47)
[2021-08-18] MEDS: Ascorbic Acid 500 MG Tab PO SCH ×2 (08:47→20:56)
[2021-08-18] MEDS: sulfaSALAzine 500 MG Tab PO SCH ×2 (08:47→17:02)
[2021-08-18] MEDS: Zinc (Zinc Gluconate) 50 MG Tab PO SCH (08:48)
[2021-08-18] MEDS: Cholecalciferol (Vitamin D3) 25 MCG Tab PO SCH (08:48)
[2021-08-18] MEDS: Escitalopram 10 MG Tab PO SCH (08:48)
[2021-08-18] MEDS: Dexamethasone 4 MG Tab PO SCH (08:48)
[2021-08-18] MEDS: cloNIDine 0.1 MG Tab PO SCH ×2 (08:48→20:58)
[2021-08-18] MEDS: Montelukast 10 MG Tab PO SCH (08:48)
[2021-08-18] MEDS: buPROPion 150 MG Tab.ER PO SCH (08:49)
[2021-08-18] MEDS: Fluticasone Propionate Nasal Spray 16 GM Bottle NASBOTH SCH (08:54)
[2021-08-18] MEDS: TRELEGY INH SCH (08:55)
[2021-08-18] MEDS ORDERED: Non-Formulary Medication 1 Each (Fenofibrate Nanocrystallized [Fenofibrate] 145 MG Tablet) PO SCH (09:00)
--- NOTE | 2021-08-18 10:46 | PCM.PN ---
- General Info Date of Service: 08/18/21 Functional Status: Reports: Pain Controlled, Tolerating Diet, Ambulating, Urinating, Incentive Spirometry (1000ml). Denies: New Symptoms - Review of Systems General: Reports: Weakness, Fatigue. Denies: Fever, Chills HEENT: Reports: No Symptoms Pulmonary: Reports: Shortness of Breath, Pleuritic Chest Pain, Cough, Sputum, Wheezing. Denies: Hemoptysis Cardiovascular: Reports: Dyspnea on Exertion Gastrointestinal: Reports: No Symptoms. Denies: Abdominal Pain, Decreased Appetite (improved today), Nausea Skin: Reports: No Symptoms Neurological: Reports: No Symptoms Psychiatric: Reports: No Symptoms - Patient Data Vitals - Most Recent: Last Vital Signs Temp 99.6 F 08/18/21 10:08 Pulse 90 08/18/21 10:08 Resp 20 08/18/21 10:08 BP 100/61 08/18/21 10:08 Pulse Ox 96 08/18/21 10:08 Weight - Most Recent: 184 lb I&O - Last 24 Hours: Intake & Output 08/17/21 08/18/21 08/18/21 22:59 06:59 14:59 Intake Total 380 100 Balance 380 100 Lab Results Last 24 Hours: Laboratory Results - last 24 hr 08/17/21 08/18/21 08/18/21 Range/Units 06:20 07:55 07:55 WBC 5.24 (5.00-10.00) 10^3/uL RBC 4.79 (3.80-5.50) 10^6/uL Hgb 12.5 (12.0-16.0) g/dL Hct 39.5 (37.0-47.0) % MCV 82.5 (82.0-92.0) fL MCH 26.1 L (27.0-31.0) pg MCHC 31.6 L (32.0-36.0) g/dL RDW 16.0 H (11.5-14.5) % Plt Count 252 (150-400) 10^3/uL MPV 9.8 (7.4-10.4) fL Immature Gran % (Auto) 0.2 (0.0-5.0) % Neut % (Auto) 57.0 (50.0-70.0) % Lymph % (Auto) 33.6 (20.0-40.0) % [place] % (Auto) 8.8 H (2.0-8.0) % Eos % (Auto) 0.0 L (1.0-3.0) % Baso % (Auto) 0.4 (0.0-1.0) % Neut # (Auto) 2.99 (2.50-7.00) 10^3/uL Lymph # (Auto) 1.76 (1.00-4.00) 10^3/uL [place] # (Auto) 0.46 (0.10-0.80) 10^3/uL Eos # (Auto) 0.00 L (0.10-0.30) 10^3/uL Baso # (Auto) 0.02 (0.00-0.10) 10^3/uL Immature Gran # (Auto) 0.01 (0.00-0.50) 10^3/uL Sodium 143 (136-145) mmol/L Potassium 3.6 (3.5-5.1) mmol/L Chloride 105 (98-107) mmol/L Carbon Dioxide 28.6 (21.0-32.0) mmol/L Anion Gap 13.0 (5-15) mmol/L BUN 15 (7-18) mg/dL Creatinine 0.58 (0.51-1.17) mg/dL Est Cr Clr Drug Dosing 90.50 mL/min Estimated GFR (MDRD) > 60 mL/min Glucose 94 (70-140) mg/dL Calcium 8.4 L (8.7-10.3) mg/dL Magnesium 2.2 (1.8-2.4) mg/dL Total Bilirubin 0.2 0.2 (0.2-1.0) mg/dL Direct Bilirubin 0.1 (0.0-0.2) mg/dL Indirect Bilirubin 0.1 mg/dL AST 40 H 34 (15-37) U/L ALT 62 54 (14-63) U/L Alkaline Phosphatase 126 H 112 (46-116) U/L C-Reactive Protein 7.2 H (0.0-0.9) mg/dL Total Protein 7.1 7.0 (6.4-8.2) g/dL Albumin 3.03 L 2.88 L (3.40-5.00) g/dL Globulin 4.07 Albumin/Globulin Ratio 0.74 James Results Last 24 Hours: Microbiology 08/16/21 23:55 Aerobic Blood Culture - Preliminary Blood - Venous - Lab Draw NO GROWTH AFTER 1 DAY Anaerobic Blood Culture - Preliminary NO GROWTH AFTER 1 DAY 08/16/21 23:40 Aerobic Blood Culture - Preliminary Blood - Venous NO GROWTH AFTER 1 DAY Anaerobic Blood Culture - Preliminary NO GROWTH AFTER 1 DAY Med Orders - Current: Current Medications Acetaminophen (Acetaminophen 325 Mg Tab) 650 mg PO Q4H PRN PRN Reason: Pain or Fever Last Admin: 08/18/21 02:29 Dose: 650 mg Documented by: Albuterol (Albuterol 8 Gm Inhaler) 0 gm INH Q4HR PRN PRN Reason: Dyspnea Last Admin: 08/18/21 02:29 Dose: 2 puff Documented by: Albuterol/Ipratropium (Albuterol/Ipratropium 3.0-0.5 Mg/3 Ml Neb Soln) 3 ml NEB Q4H PRN PRN Reason: Shortness of Breath Last Admin: 08/17/21 00:31 Dose: 3 ml Documented by: Ascorbic Acid (Ascorbic Acid 500 Mg Tab) 1,000 mg PO BID [facility], [facility] Last Admin: 08/18/21 08:47 Dose: 1,000 mg Documented by: Bupropion HCl (Bupropion 150 Mg Tab.Er) 300 mg PO DAILY [facility], [facility] Last Admin: 08/18/21 08:49 Dose: 300 mg Documented by: Cholecalciferol (Cholecalciferol (Vitamin D3) 25 Mcg Tab) 25 mcg PO DAILY [facility], [facility]1983 Last Admin: 08/18/21 08:48 Dose: 25 mcg Documented by: Clonidine HCl (Clonidine 0.1 Mg Tab) 0.1 mg PO QPM [facility], [facility] Last Admin: 08/17/21 20:00 Dose: 0.1 mg Documented by: Clonidine HCl (Clonidine 0.1 Mg Tab) 0.2 mg PO QAM [facility], [facility] Last Admin: 08/18/21 08:48 Dose: 0.2 mg Documented by: Dexamethasone (Dexamethasone 4 Mg Tab) 6 mg PO DAILY [facility], [facility]1983 Stop: 08/21/21 12:00 Last Admin: 08/18/21 08:48 Dose: 6 mg Documented by: Enoxaparin Sodium (Enoxaparin 40 Mg/0.4 Ml Syringe) 40 mg SUBCUT Q24H [facility], [facility] Last Admin: 08/17/21 13:34 Dose: 40 mg Documented by: Escitalopram Oxalate (Escitalopram 10 Mg Tab) 20 mg PO DAILY [facility] Last Admin: 08/18/21 08:48 Dose: 20 mg Documented by: Fluticasone Propionate (Fluticasone Propionate Nasal [place] 16 Gm Bottle) 0 gm NASBOTH DAILY [facility], [facility] Last Admin: 08/18/21 08:54 Dose: 1 spray Documented by: Guaifenesin (Guaifenesin 600 Mg Tab.Er) 600 mg PO BID [facility], [facility] Last Admin: 08/18/21 08:47 Dose: 600 mg Documented by: Sodium Chloride (Normal Saline) 50 mls @ 100 mls/hr IV ASDIRECTED [facility], [facility] Last Admin: 08/17/21 01:13 Dose: 100 mls/hr Documented by: Levofloxacin/Dextrose 750 mg/ (Premix) 150 mls @ 100 mls/hr IV Q24H [facility] Last Admin: 08/17/21 20:00 Dose: 100 mls/hr Documented by: Remdesivir 100 mg/ Sodium (Chloride) 250 mls @ 250 mls/hr IV Q24H [facility]1983 Stop: 08/21/21 13:00 Levothyroxine Sodium (Levothyroxine 75 Mcg Tab) 150 mcg PO ACBREAKFAST [facility], [facility] Last Admin: 08/18/21 06:38 Dose: Not Given Documented by: Losartan Potassium (Losartan 50 Mg Tab) 100 mg PO DAILY [facility] Last Admin: 08/18/21 08:47 Dose: 100 mg Documented by: Montelukast Sodium (Montelukast 10 Mg Tab) 10 mg PO DAILY [facility] Last Admin: 08/18/21 08:48 Dose: 10 mg Documented by: Non-Formulary Medication (Fenofibrate Nanocrystallized [Fenofibrate]) 145 mg PO DAILY [facility]1983 Ondansetron HCl (Ondansetron 4 Mg Tab.Dis) 4 mg PO Q6H PRN PRN Reason: Nausea/Vomiting Pantoprazole Sodium (Pantoprazole 40 Mg Tab.Cr) 40 mg PO BIDAC [facility] Last Admin: 08/18/21 06:38 Dose: Not Given Documented by: Ptom- Trelegy (Inhaler) 1 each INH DAILY [facility], [facility] Last Admin: 08/18/21 08:55 Dose: 1 each Documented by: Sulfasalazine (Sulfasalazine 500 Mg Tab) 500 mg PO BIDMEALS [facility], [facility] Last Admin: 08/18/21 08:47 Dose: 500 mg Documented by: Sumatriptan Succinate (Sumatriptan 25 Mg Tab) 50 mg PO ASDIRECTED PRN PRN Reason: Headache Last Admin: 08/18/21 02:50 Dose: 50 mg Documented by: Topiramate (Topiramate 25 Mg Tab) 25 mg PO BEDTIME [facility] Last Admin: 08/17/21 20:00 Dose: 25 mg Documented by: Zinc Gluconate (Zinc (Zinc Gluconate) 50 Mg Tab) 50 mg PO DAILY [facility] Last Admin: 08/18/21 08:48 Dose: 50 mg Documented by: Discontinued Medications Sodium Chloride (Normal Saline) 50 mls @ 200 mls/min IV ASDIRECTED [facility], [facility] Last Admin: 08/16/21 21:24 Dose: 200 mls/min Documented by: Sodium Chloride (Normal Saline) 1,000 mls @ 999 mls/hr IV .BOLUS ONE Stop: 08/16/21 22:06 Last Admin: 08/16/21 21:26 Dose: 999 mls/hr Documented by: Levofloxacin/Dextrose 500 mg/ (Premix) 100 mls @ 100 mls/hr IV ONETIME ONE Stop: 08/16/21 23:51 Last Admin: 08/16/21 23:06 Dose: 100 mls/hr Documented by: Sodium Chloride (Normal Saline) Confirm Administered Dose 50 mls @ as directed .ROUTE .STK-MED ONE Stop: 08/17/21 00:26 Last Admin: 08/17/21 00:51 Dose: Not Given Documented by: Remdesivir 200 mg/ Sodium (Chloride) 250 mls @ 250 mls/hr IV ONETIME ONE Stop: 08/17/21 10:48 Last Admin: 08/17/21 13:33 Dose: 250 mls/hr Documented by: Iopamidol (Iopamidol 755 Mg/Ml 75 Ml Bottle) 75 ml IVPUSH ONETIME ONE Stop: 08/16/21 20:36 Last Admin: 08/16/21 21:24 Dose: 75 ml Documented by: Methylprednisolone Sodium Succinate (Methylprednisolone Sodium Succinate 125 Mg/2 Ml Sdv) 40 mg IVPUSH ONETIME ONE Stop: 08/16/21 22:53 Last Admin: 08/16/21 23:01 Dose: 40 mg Documented by: Non-Formulary Medication (Ipratropium/Albuterol Sulfate [Combivent Respimat 20- 100 Mcg]) 1 puff IH Q4H PRN PRN Reason: Shortness of Breath Sodium Chloride (Sodium Chloride 0.9% 10 Ml Syringe) 10 ml FLUSH Q8HR PRN PRN Reason: keep vein open Last Admin: 08/16/21 20:27 Dose: 10 ml Documented by: - Exam Quality Assessment: Supplemental Oxygen (2L NC), DVT Prophylaxis (lovenox). No: Urine Catheter General: Alert, Oriented, Cooperative, No Acute Distress HEENT: Pupils Equal, Pupils Reactive, Mucous Membr. Moist/[place] Neck: Supple, Trachea Midline Lungs: Decreased Breath Sounds, Rhonchi, Wheezing. No: Crackles, Rales Cardiovascular: Regular Rate, Regular Rhythm, No Murmurs GI/Abdominal Exam: Normal Bowel Sounds, Soft, Non-Tender, No Distention (Female) Exam: Deferred Back Exam: Normal Inspection, Full Range of Motion Extremities: Normal Inspection, Normal Range of Motion, Non-Tender, No Pedal Edema, Normal Capillary Refill Peripheral Pulses: 2+: Dorsalis Pedis (L), Dorsalis Pedis (R) Skin: Warm, Dry, Intact Neurological: No New Focal Deficit Psy/Mental Status: Alert, Normal Affect, Normal Mood - Patient Data Lab Results Last 24 hrs: Laboratory Results - last 24 hr 08/17/21 08/18/21 08/18/21 Range/Units 06:20 07:55 07:55 WBC 5.24 (5.00-10.00) 10^3/uL RBC 4.79 (3.80-5.50) 10^6/uL Hgb 12.5 (12.0-16.0) g/dL Hct 39.5 (37.0-47.0) % MCV 82.5 (82.0-92.0) fL MCH 26.1 L (27.0-31.0) pg MCHC 31.6 L (32.0-36.0) g/dL RDW 16.0 H (11.5-14.5) % Plt Count 252 (150-400) 10^3/uL MPV 9.8 (7.4-10.4) fL Immature Gran % (Auto) 0.2 (0.0-5.0) % Neut % (Auto) 57.0 (50.0-70.0) % Lymph % (Auto) 33.6 (20.0-40.0) % [place] % (Auto) 8.8 H (2.0-8.0) % Eos % (Auto) 0.0 L (1.0-3.0) % Baso % (Auto) 0.4 (0.0-1.0) % Neut # (Auto) 2.99 (2.50-7.00) 10^3/uL Lymph # (Auto) 1.76 (1.00-4.00) 10^3/uL [place] # (Auto) 0.46 (0.10-0.80) 10^3/uL Eos # (Auto) 0.00 L (0.10-0.30) 10^3/uL Baso # (Auto) 0.02 (0.00-0.10) 10^3/uL Immature Gran # (Auto) 0.01 (0.00-0.50) 10^3/uL Sodium 143 (136-145) mmol/L Potassium 3.6 (3.5-5.1) mmol/L Chloride 105 (98-107) mmol/L Carbon Dioxide 28.6 (21.0-32.0) mmol/L Anion Gap 13.0 (5-15) mmol/L BUN 15 (7-18) mg/dL Creatinine 0.58 (0.51-1.17) mg/dL Est Cr Clr Drug Dosing 90.50 mL/min Estimated GFR (MDRD) > 60 mL/min Glucose 94 (70-140) mg/dL Calcium 8.4 L (8.7-10.3) mg/dL Magnesium 2.2 (1.8-2.4) mg/dL Total Bilirubin 0.2 0.2 (0.2-1.0) mg/dL Direct Bilirubin 0.1 (0.0-0.2) mg/dL Indirect Bilirubin 0.1 mg/dL AST 40 H 34 (15-37) U/L ALT 62 54 (14-63) U/L Alkaline Phosphatase 126 H 112 (46-116) U/L C-Reactive Protein 7.2 H (0.0-0.9) mg/dL Total Protein 7.1 7.0 (6.4-8.2) g/dL Albumin 3.03 L 2.88 L (3.40-5.00) g/dL Globulin 4.07 Albumin/Globulin Ratio 0.74 Result Diagrams: 08/18/21 07:55 08/18/21 07:55 James Results Last 24 hrs: Microbiology 08/16/21 23:55 Aerobic Blood Culture - Preliminary Blood - Venous - Lab Draw NO GROWTH AFTER 1 DAY Anaerobic Blood Culture - Preliminary NO GROWTH AFTER 1 DAY 08/16/21 23:40 Aerobic Blood Culture - Preliminary Blood - Venous NO GROWTH AFTER 1 DAY Anaerobic Blood Culture - Preliminary NO GROWTH AFTER 1 DAY Sepsis Event Note - Evaluation Sepsis Screening Result: Sepsis Risk - Focused Exam Vital Signs: Vital Signs Temp Pulse Resp BP BP Pulse Ox 08/18/21 10:08 99.6 F 90 20 100/61 96 08/18/21 08:48 114/78 08/18/21 08:47 114/78 08/18/21 06:06 97 F 81 20 149/94 H 93 L 08/18/21 02:33 97.1 F 93 24 H 117/79 94 L - Problem List Review Problem List Initiated/Reviewed/Updated: Yes - My Orders Last 24 Hours: My Active Orders 08/17/21 10:15 Fluticasone Propionate [Flonase] 0 gm NASBOTH DAILY Montelukast [Singulair] 10 mg PO DAILY guaiFENesin [Mucinex] 600 mg PO BID 08/17/21 11:00 Enoxaparin [Lovenox] 40 mg SUBCUT Q24H dexAMETHasone 6 mg PO DAILY 08/17/21 Lunch Regular Diet [DIET] 08/17/21 12:30 Ascorbic Acid [Vitamin C] 1,000 mg PO BID Cholecalciferol (Vitamin D3) [Vitamin D3] 25 mcg PO DAILY Zinc Gluconate [Zinc] 50 mg PO DAILY 08/17/21 12:35 Ondansetron [Zofran ODT] 4 mg PO Q6H PRN 08/17/21 14:49 Acetaminophen [TylenoL] 650 mg PO Q4H PRN 08/17/21 17:15 Losartan [Cozaar] 100 mg PO DAILY 08/17/21 17:30 Pantoprazole [ProTONIX] 40 mg PO BIDAC 08/17/21 18:00 sulfaSALAzine 500 mg PO BIDMEALS 08/17/21 21:00 Levofloxacin/Dextrose 5%-Water [Levaquin in D5W 750 MG/150 ML] 750 mg Premix Bag 1 bag IV Q24H Topiramate [Topamax] 25 mg PO BEDTIME cloNIDine [Catapres] 0.1 mg PO QPM 08/18/21 07:30 Levothyroxine 150 mcg PO ACBREAKFAST 08/18/21 09:00 Escitalopram [Lexapro] 20 mg PO DAILY Fenofibrate Nanocrystallized [Fenofibrate] 145 mg PO DAILY buPROPion [Wellbutrin XL] 300 mg PO DAILY cloNIDine [Catapres] 0.2 mg PO QAM 08/18/21 12:30 Remdesivir 100 mg Sodium Chloride 0.9% [Normal Saline] 250 ml IV Q24H 08/19/21 05:11 CBC WITH AUTO DIFF [HEME] AM CMP [COMPREHENSIVE METABOLIC PN,CMP] [CHEM] AM CRP [C-REACTIVE PROTEIN] [CHEM] AM MG [MAGNESIUM] [CHEM] AM - Plan Plan:: HPI summary: Piper is a 61yF patient with a 5 day hx of increased dyspnea and chest tightness. Patient was started on a medrol dose pack for bronchitis on 08/11. Initial COVID test was negative on 08/08/21, COVID test was positive on 08/15/21 and patient received monoclonal antibody treatment at [facility] prior to presenting to the ER last evening for worsening dyspnea r/t COVID-19. PMH includes emphysema, moderate persistent asthma and current smoking, though patient indicates that she is now trying to quit. ED course: EKG NSR. D-dimer 597, CTA negative for PE - indicated ground glass opacities bilaterally. 1L NS bolus in ER, solumedrol 40mg IV x 1 dose and initial dose of levaquin 750mg IV after blood cultures were obtained. Patient requiring supplemental oxygen to maintain O2 sat > 90%, patient admitted to inpatient status per Dr Palacios. Hospital course: 08/17/21: No calls overnight after admission. Breathing reportedly improved with oxygen. Dyspnea and cough continue. Intermittent nausea and diarrhea. O2 stable on minimal O2 at 2L. Vitals stable, afebrile. WBC 5.16, Hgb 12.5, Plt 222. Na 140, K 3.9, BUN 9, Creatinine 0.50, lactic acid 0.8, AST 38, alk phos 121, trop negative, albumin 3.09. CRP 11.8. ABG's stable - pH 7.45, PCO2 32, HCO3 21.9. Lung sounds diminished with crackles, rhonchi and wheezing. Patient declines nicotine patch, states she is going to try to quit smoking. Tyrese ordered PRN for nausea. 08/18/21: No calls overnight. Cough productive this morning, continues to have some dyspnea, improved slightly per patient. No nausea, appetite improving. IS to 1000ml. Hemodynamically acceptable, afebrile, O2 sat 93% on 2L NC. WBC 5.24 , Hgb 12.5, Plt 252. Na 143, K 3.6, BUN 15, Creatinine 0.58, Mg 2.2. CRP decreased to 7.2 today. BC NGTD x 1 day, consider stopping levaquin if negative x 2 days as highly suspect viral pneumonia given WBC, afebrile. POLST updated today. Will add mucinex to improve productivity of cough. Hospitalization problems and plan: # COVID-19 # COVID Pneumonia - empiric antibiotics of levaquin provided given underlying emphysema # Hypoxia # COPD # Moderate persistent asthma # Elevated CRP - 11.8 today - Continue supplemental oxygen to maintain O2 sat > 90% - BC x 2 - NGTD x 1 day - Levaquin 750mg IV daily - continue while BC pending, consider stopping if continue to be negative as suspect viral etiology - Continue Remdesevir 200mg IV x 1, then 100mg IV daily x 4 doses - Continue Lovenox 40mg subq daily - Continue Dexamethasone 6mg PO daily x 5 days as patient was already on medrol dose pack for 5 days - Continue Adjunctive tx: zinc, vitamin C, Vitamin D - Encourage IS 10x/hr while awake - Repeat CBC, CMP, CRP, Mg in am Chronic, stable conditions: # HTN - Continue clonidine 0.2mg in am, 0.1mg HS; losartan 100mg PO daily; verapamil 240mg PO daily ([facility] on hold) # Cardiomyopathy - takes aspirin 81mg PO daily - on hold # Emphysema - takes trelegy, albuterol inhaler PRN, duonebs PRN and combivent # Moderate persistent asthma - continue singulair 10mg PO daily, flonase # Chronic maxillary sinusitis # Hypothyroidism - continue levothyroxine 150mcg PO daily # Pure hypercholesterolemia - Continue fenofibrate 145mg PO daily # GERD - Continue prilosec 20mg PO BID, takes pepcid 40mg HS # Reactive arthritis - Continue sulfasalazine 500mg PO BID # Chronic low back pain # Depression/anxiety - continue wellbutrin 300mg PO daily, lexapro 20mg PO daily # Migraine - takes sumatriptan 100mg (1/2 tab at onset of headache, may repeat after 2 hours if needed); continue topamax 25mg PO daily # Arthropathy associated with GI conditions other than infectious # Tobacco abuse # Obesity Hospitalization details: # FEN: Oral fluids, electrolytes stable, regular diet # PPX: Lovenox 40mg subq daily, omeprazole 20mg PO BID # Code status: FULL CODE, POLST updated # Emergency contact: , Tang [phone] # Disposition: Patient to continue inpatient status for treatment of COVID-19, COVID pneumonia, continuing to require supplemental oxygen. Remdesevir to continue until Sunday08/21/21; possible discharge Sunday/Wednesday 08/22 based on clinical course - may require home oxygen upon discharge to maintain O2 > 90% given COPD.
[2021-08-18] MEDS: Enoxaparin 40 MG/0.4 ML Syringe SUBCUT SCH (11:08)
[2021-08-18] MEDS: REMDESIVIR 100 MG in Sodium Chloride 0.9% 250 ML IV SCH (12:29)
[2021-08-18] MEDS: Topiramate 25 MG Tab PO SCH (20:56)
[2021-08-18] MEDS: Levofloxacin/Dextrose 5%-Water 750 MG in Premix Bag 1 BAG IV SCH (20:57)
[2021-08-18] MEDS: Ondansetron 4 MG Tab.DIS PO PRN (21:28)
[2021-08-19] MEDS: Acetaminophen 325 MG Tab PO PRN ×3 (03:03→20:49)
[2021-08-19] MEDS: SUMAtriptan 25 MG Tab PO PRN ×2 (03:04→11:33)
[2021-08-19] MEDS: Levothyroxine 75 MCG Tab PO SCH ×2 (06:14→06:39)
[2021-08-19] MEDS: Pantoprazole 40 MG Tab.CR PO SCH ×3 (06:14→17:32)
[2021-08-19] MEDS: Ondansetron 4 MG Tab.DIS PO PRN (06:35)
[2021-08-19 08:13] LABS: ANION GAP 12.3 mmol/L (5-15); CHLORIDE,CL 103 mmol/L (98-107); SODIUM,NA 142 mmol/L (136-145)
[2021-08-19] MEDS: sulfaSALAzine 500 MG Tab PO SCH ×2 (08:25→17:32)
[2021-08-19] MEDS: buPROPion 150 MG Tab.ER PO SCH (08:25)
[2021-08-19] MEDS: Dexamethasone 4 MG Tab PO SCH (08:26)
[2021-08-19] MEDS: Escitalopram 10 MG Tab PO SCH (08:26)
[2021-08-19] MEDS: Fluticasone Propionate Nasal Spray 16 GM Bottle NASBOTH SCH (08:27)
[2021-08-19] MEDS: Montelukast 10 MG Tab PO SCH (08:27)
[2021-08-19] MEDS: TRELEGY INH SCH (08:29)
[2021-08-19] MEDS ORDERED: Potassium Chloride 20 MEQ Tab.ER PO ONE (11:13)
[2021-08-19] MEDS: Enoxaparin 40 MG/0.4 ML Syringe SUBCUT SCH (11:32)
[2021-08-19] MEDS: REMDESIVIR 100 MG in Sodium Chloride 0.9% 250 ML IV SCH (11:36)
--- NOTE | 2021-08-19 11:44 | PCM.PN ---
- General Info Date of Service: 08/19/21 Functional Status: Reports: Tolerating Diet, Ambulating, Urinating, Incentive Spirometry. Denies: Pain Controlled (headache - migraine) - Review of Systems General: Reports: No Symptoms HEENT: Reports: Headaches (chronic migraines) Pulmonary: Reports: Shortness of Breath (improved), Cough (occasional), Sputum Cardiovascular: Reports: Dyspnea on Exertion (improving). Denies: Lightheadedness Gastrointestinal: Reports: Nausea. Denies: Abdominal Pain, Diarrhea Genitourinary: Reports: No Symptoms Musculoskeletal: Reports: No Symptoms Skin: Reports: No Symptoms Neurological: Reports: No Symptoms. Denies: Dizziness Psychiatric: Reports: No Symptoms - Patient Data Vitals - Most Recent: Last Vital Signs Temp 97.6 F 08/19/21 11:00 Pulse 85 08/19/21 11:00 Resp 20 08/19/21 11:00 BP 106/72 08/19/21 11:00 Pulse Ox 93 L 08/19/21 11:00 Weight - Most Recent: 184 lb I&O - Last 24 Hours: Intake & Output 08/18/21 08/19/21 08/19/21 22:59 06:59 14:59 Intake Total 450 330 Balance 450 330 Lab Results Last 24 Hours: Laboratory Results - last 24 hr 08/19/21 08/19/21 Range/Units 07:10 07:15 WBC 7.62 (5.00-10.00) 10^3/uL RBC 4.64 (3.80-5.50) 10^6/uL Hgb 12.2 (12.0-16.0) g/dL Hct 38.3 (37.0-47.0) % MCV 82.5 (82.0-92.0) fL MCH 26.3 L (27.0-31.0) pg MCHC 31.9 L (32.0-36.0) g/dL RDW 15.9 H (11.5-14.5) % Plt Count 273 (150-400) 10^3/uL MPV 9.8 (7.4-10.4) fL Immature Gran % (Auto) 0.5 (0.0-5.0) % Neut % (Auto) 62.8 (50.0-70.0) % Lymph % (Auto) 27.2 (20.0-40.0) % [place] % (Auto) 9.2 H (2.0-8.0) % Eos % (Auto) 0.0 L (1.0-3.0) % Baso % (Auto) 0.3 (0.0-1.0) % Neut # (Auto) 4.79 (2.50-7.00) 10^3/uL Lymph # (Auto) 2.07 (1.00-4.00) 10^3/uL [place] # (Auto) 0.70 (0.10-0.80) 10^3/uL Eos # (Auto) 0.00 L (0.10-0.30) 10^3/uL Baso # (Auto) 0.02 (0.00-0.10) 10^3/uL Immature Gran # (Auto) 0.04 (0.00-0.50) 10^3/uL Sodium 142 (136-145) mmol/L Potassium 3.1 L (3.5-5.1) mmol/L Chloride 103 (98-107) mmol/L Carbon Dioxide 29.8 (21.0-32.0) mmol/L Anion Gap 12.3 (5-15) mmol/L BUN 16 (7-18) mg/dL Creatinine 0.67 (0.51-1.17) mg/dL Est Cr Clr Drug Dosing 78.34 mL/min Estimated GFR (MDRD) > 60 mL/min Glucose 90 (70-140) mg/dL Calcium 8.2 L (8.7-10.3) mg/dL Magnesium 1.9 (1.8-2.4) mg/dL Total Bilirubin 0.3 (0.2-1.0) mg/dL AST 26 (15-37) U/L ALT 45 (14-63) U/L Alkaline Phosphatase 104 (46-116) U/L C-Reactive Protein 3.5 H (0.0-0.9) mg/dL Total Protein 6.6 (6.4-8.2) g/dL Albumin 2.76 L (3.40-5.00) g/dL James Results Last 24 Hours: Microbiology 08/16/21 23:55 Aerobic Blood Culture - Preliminary Blood - Venous - Lab Draw NO GROWTH AFTER 2 DAYS Anaerobic Blood Culture - Preliminary NO GROWTH AFTER 2 DAYS 08/16/21 23:40 Aerobic Blood Culture - Preliminary Blood - Venous NO GROWTH AFTER 2 DAYS Anaerobic Blood Culture - Preliminary NO GROWTH AFTER 2 DAYS Med Orders - Current: Current Medications Acetaminophen (Acetaminophen 325 Mg Tab) 650 mg PO Q4H PRN PRN Reason: Pain or Fever Last Admin: 08/19/21 11:35 Dose: 650 mg Documented by: Albuterol (Albuterol 8 Gm Inhaler) 0 gm INH Q4HR PRN PRN Reason: Dyspnea Last Admin: 08/18/21 02:29 Dose: 2 puff Documented by: Albuterol/Ipratropium (Albuterol/Ipratropium 3.0-0.5 Mg/3 Ml Neb Soln) 3 ml NEB Q4H PRN PRN Reason: Shortness of Breath Last Admin: 08/17/21 00:31 Dose: 3 ml Documented by: Ascorbic Acid (Ascorbic Acid 500 Mg Tab) 1,000 mg PO BID [facility] Last Admin: 08/18/21 20:56 Dose: 1,000 mg Documented by: Bupropion HCl (Bupropion 150 Mg Tab.Er) 300 mg PO DAILY [facility] Last Admin: 08/19/21 08:25 Dose: 300 mg Documented by: Cholecalciferol (Cholecalciferol (Vitamin D3) 25 Mcg Tab) 25 mcg PO DAILY [facility] Last Admin: 08/18/21 08:48 Dose: 25 mcg Documented by: Clonidine HCl (Clonidine 0.1 Mg Tab) 0.1 mg PO QPM [facility] Last Admin: 08/18/21 20:58 Dose: 0.1 mg Documented by: Clonidine HCl (Clonidine 0.1 Mg Tab) 0.2 mg PO QAM [facility] Last Admin: 08/18/21 08:48 Dose: 0.2 mg Documented by: Dexamethasone (Dexamethasone 4 Mg Tab) 6 mg PO DAILY [facility] Stop: 08/21/21 12:00 Last Admin: 08/19/21 08:26 Dose: 6 mg Documented by: Enoxaparin Sodium (Enoxaparin 40 Mg/0.4 Ml Syringe) 40 mg SUBCUT Q24H [facility] Last Admin: 08/19/21 11:32 Dose: 40 mg Documented by: Escitalopram Oxalate (Escitalopram 10 Mg Tab) 20 mg PO DAILY [facility] Last Admin: 08/19/21 08:26 Dose: 20 mg Documented by: Fluticasone Propionate (Fluticasone Propionate Nasal [place] 16 Gm Bottle) 0 gm NASBOTH DAILY [facility] Last Admin: 08/19/21 08:27 Dose: 1 spray Documented by: Guaifenesin (Guaifenesin 600 Mg Tab.Er) 600 mg PO BID [facility] Last Admin: 08/18/21 20:57 Dose: 600 mg Documented by: Sodium Chloride (Normal Saline) 50 mls @ 100 mls/hr IV ASDIRECTED [facility] Last Admin: 08/17/21 01:13 Dose: 100 mls/hr Documented by: Remdesivir 100 mg/ Sodium (Chloride) 250 mls @ 250 mls/hr IV Q24H [facility] Stop: 08/21/21 13:00 Last Admin: 08/19/21 11:36 Dose: 250 mls/hr Documented by: Levothyroxine Sodium (Levothyroxine 75 Mcg Tab) 150 mcg PO ACBREAKFAST [facility] Last Admin: 08/19/21 06:39 Dose: Not Given Documented by: Losartan Potassium (Losartan 50 Mg Tab) 100 mg PO DAILY [facility] Last Admin: 08/18/21 08:47 Dose: 100 mg Documented by: Montelukast Sodium (Montelukast 10 Mg Tab) 10 mg PO DAILY [facility] Last Admin: 08/19/21 08:27 Dose: 10 mg Documented by: Non-Formulary Medication (Fenofibrate Nanocrystallized [Fenofibrate]) 145 mg PO DAILY [facility] Ondansetron HCl (Ondansetron 4 Mg Tab.Dis) 4 mg PO Q6H PRN PRN Reason: Nausea/Vomiting Last Admin: 08/19/21 06:35 Dose: 4 mg Documented by: Pantoprazole Sodium (Pantoprazole 40 Mg Tab.Cr) 40 mg PO BIDAC [facility] Last Admin: 08/19/21 06:39 Dose: Not Given Documented by: Ptom- Trelegy (Inhaler) 1 each INH DAILY [facility] Last Admin: 08/19/21 08:29 Dose: 1 each Documented by: Sulfasalazine (Sulfasalazine 500 Mg Tab) 500 mg PO BIDMEALS [facility] Last Admin: 08/19/21 08:25 Dose: 500 mg Documented by: Sumatriptan Succinate (Sumatriptan 25 Mg Tab) 50 mg PO ASDIRECTED PRN PRN Reason: Headache Last Admin: 08/19/21 11:33 Dose: 50 mg Documented by: Topiramate (Topiramate 25 Mg Tab) 25 mg PO BEDTIME [facility] Last Admin: 08/18/21 20:56 Dose: 25 mg Documented by: Zinc Gluconate (Zinc (Zinc Gluconate) 50 Mg Tab) 50 mg PO DAILY [facility] Last Admin: 08/18/21 08:48 Dose: 50 mg Documented by: Discontinued Medications Sodium Chloride (Normal Saline) 50 mls @ 200 mls/min IV ASDIRECTED [facility] Last Admin: 08/16/21 21:24 Dose: 200 mls/min Documented by: Sodium Chloride (Normal Saline) 1,000 mls @ 999 mls/hr IV .BOLUS ONE Stop: 08/16/21 22:06 Last Admin: 08/16/21 21:26 Dose: 999 mls/hr Documented by: Levofloxacin/Dextrose 500 mg/ (Premix) 100 mls @ 100 mls/hr IV ONETIME ONE Stop: 08/16/21 23:51 Last Admin: 08/16/21 23:06 Dose: 100 mls/hr Documented by: Sodium Chloride (Normal Saline) Confirm Administered Dose 50 mls @ as directed .ROUTE .STK-MED ONE Stop: 08/17/21 00:26 Last Admin: 08/17/21 00:51 Dose: Not Given Documented by: Remdesivir 200 mg/ Sodium (Chloride) 250 mls @ 250 mls/hr IV ONETIME ONE Stop: 08/17/21 10:48 Last Admin: 08/17/21 13:33 Dose: 250 mls/hr Documented by: Levofloxacin/Dextrose 750 mg/ (Premix) 150 mls @ 100 mls/hr IV Q24H [facility] Last Admin: 08/18/21 20:57 Dose: 100 mls/hr Documented by: Iopamidol (Iopamidol 755 Mg/Ml 75 Ml Bottle) 75 ml IVPUSH ONETIME ONE Stop: 08/16/21 20:36 Last Admin: 08/16/21 21:24 Dose: 75 ml Documented by: Methylprednisolone Sodium Succinate (Methylprednisolone Sodium Succinate 125 Mg/2 Ml Sdv) 40 mg IVPUSH ONETIME ONE Stop: 08/16/21 22:53 Last Admin: 08/16/21 23:01 Dose: 40 mg Documented by: Non-Formulary Medication (Ipratropium/Albuterol Sulfate [Combivent Respimat 20- 100 Mcg]) 1 puff IH Q4H PRN PRN Reason: Shortness of Breath Potassium Chloride (Potassium Chloride 20 Meq Tab.Er) 40 meq PO ONETIME ONE Stop: 08/19/21 11:14 Last Admin: 08/19/21 11:34 Dose: 40 meq Documented by: Sodium Chloride (Sodium Chloride 0.9% 10 Ml Syringe) 10 ml FLUSH Q8HR PRN PRN Reason: keep vein open Last Admin: 08/16/21 20:27 Dose: 10 ml Documented by: - Exam Quality Assessment: DVT Prophylaxis. No: Supplemental Oxygen General: Alert, Oriented, Cooperative, No Acute Distress HEENT: Pupils Equal, Mucous Membr. Moist/[place], Other (thrush ) Neck: Supple, Trachea Midline Lungs: Decreased Breath Sounds, Rhonchi (mild), Wheezing (mild). No: Crackles Cardiovascular: Regular Rate, Regular Rhythm, No Murmurs GI/Abdominal Exam: Normal Bowel Sounds, Soft, Non-Tender, No Distention (Female) Exam: Deferred Back Exam: Normal Inspection, Full Range of Motion Extremities: Normal Inspection, Normal Range of Motion, Non-Tender, No Pedal Edema, Normal Capillary Refill Peripheral Pulses: 2+: Dorsalis Pedis (L), Dorsalis Pedis (R) Skin: Warm, Dry, Intact Neurological: No New Focal Deficit Psy/Mental Status: Alert, Normal Affect, Normal Mood - Patient Data Lab Results Last 24 hrs: Laboratory Results - last 24 hr 08/19/21 08/19/21 Range/Units 07:10 07:15 WBC 7.62 (5.00-10.00) 10^3/uL RBC 4.64 (3.80-5.50) 10^6/uL Hgb 12.2 (12.0-16.0) g/dL Hct 38.3 (37.0-47.0) % MCV 82.5 (82.0-92.0) fL MCH 26.3 L (27.0-31.0) pg MCHC 31.9 L (32.0-36.0) g/dL RDW 15.9 H (11.5-14.5) % Plt Count 273 (150-400) 10^3/uL MPV 9.8 (7.4-10.4) fL Immature Gran % (Auto) 0.5 (0.0-5.0) % Neut % (Auto) 62.8 (50.0-70.0) % Lymph % (Auto) 27.2 (20.0-40.0) % [place] % (Auto) 9.2 H (2.0-8.0) % Eos % (Auto) 0.0 L (1.0-3.0) % Baso % (Auto) 0.3 (0.0-1.0) % Neut # (Auto) 4.79 (2.50-7.00) 10^3/uL Lymph # (Auto) 2.07 (1.00-4.00) 10^3/uL [place] # (Auto) 0.70 (0.10-0.80) 10^3/uL Eos # (Auto) 0.00 L (0.10-0.30) 10^3/uL Baso # (Auto) 0.02 (0.00-0.10) 10^3/uL Immature Gran # (Auto) 0.04 (0.00-0.50) 10^3/uL Sodium 142 (136-145) mmol/L Potassium 3.1 L (3.5-5.1) mmol/L Chloride 103 (98-107) mmol/L Carbon Dioxide 29.8 (21.0-32.0) mmol/L Anion Gap 12.3 (5-15) mmol/L BUN 16 (7-18) mg/dL Creatinine 0.67 (0.51-1.17) mg/dL Est Cr Clr Drug Dosing 78.34 mL/min Estimated GFR (MDRD) > 60 mL/min Glucose 90 (70-140) mg/dL Calcium 8.2 L (8.7-10.3) mg/dL Magnesium 1.9 (1.8-2.4) mg/dL Total Bilirubin 0.3 (0.2-1.0) mg/dL AST 26 (15-37) U/L ALT 45 (14-63) U/L Alkaline Phosphatase 104 (46-116) U/L C-Reactive Protein 3.5 H (0.0-0.9) mg/dL Total Protein 6.6 (6.4-8.2) g/dL Albumin 2.76 L (3.40-5.00) g/dL Result Diagrams: 08/19/21 07:15 08/19/21 07:10 James Results Last 24 hrs: Microbiology 08/16/21 23:55 Aerobic Blood Culture - Preliminary Blood - Venous - Lab Draw NO GROWTH AFTER 2 DAYS Anaerobic Blood Culture - Preliminary NO GROWTH AFTER 2 DAYS 08/16/21 23:40 Aerobic Blood Culture - Preliminary Blood - Venous NO GROWTH AFTER 2 DAYS Anaerobic Blood Culture - Preliminary NO GROWTH AFTER 2 DAYS Sepsis Event Note - Evaluation Sepsis Screening Result: No Definite Risk - Focused Exam Vital Signs: Vital Signs Temp Pulse Resp BP Pulse Ox 08/19/21 11:00 97.6 F 85 20 106/72 93 L 08/19/21 08:30 97.2 F 86 18 99/66 97 08/19/21 06:38 97.1 F 73 18 128/80 92 L 08/19/21 03:00 96.0 F L 75 20 153/89 H 94 L - Problem List Review Problem List Initiated/Reviewed/Updated: Yes - My Orders Last 24 Hours: My Active Orders 08/18/21 11:32 Code Status [Resuscitation Status] Routine 08/18/21 12:30 Remdesivir 100 mg Sodium Chloride 0.9% [Normal Saline] 250 ml IV Q24H - Plan Plan:: HPI summary: Piper is a 61yF patient with a 5 day hx of increased dyspnea and chest tightness. Patient was started on a medrol dose pack for bronchitis on 08/11. Initial COVID test was negative on 08/08/21, COVID test was positive on 08/15/21 and patient received monoclonal antibody treatment at [facility] yesterday prior to presenting to the ER last evening for worsening dyspnea r/t COVID-19. PMH includes emphysema, moderate persistent asthma and current smoking, though patient indicates that she is now trying to quit. ED course: EKG NSR. D-dimer 597, CTA negative for PE - indicated ground glass opacities bilaterally. 1L NS bolus in ER, solumedrol 40mg IV x 1 dose and initial dose of levaquin 750mg IV after blood cultures were obtained. Patient requiring supplemental oxygen to maintain O2 sat > 90%, patient admitted to inpatient status per Dr Palacios. Hospital course: 08/17/21: No calls overnight after admission. Breathing reportedly improved with oxygen. Dyspnea and cough continue. Intermittent nausea and diarrhea. O2 stable on minimal O2 at 2L. Vitals stable, afebrile. WBC 5.16, Hgb 12.5, Plt 222. Na 140, K 3.9, BUN 9, Creatinine 0.50, lactic acid 0.8, AST 38, alk phos 121, trop negative, albumin 3.09. CRP 11.8. ABG's stable - pH 7.45, PCO2 32, HCO3 21.9. Lung sounds diminished with crackles, rhonchi and wheezing. Patient declines nicotine patch, states she is going to try to quit smoking. Tyrese ordered PRN for nausea. 08/18/21: No calls overnight. Cough productive this morning, continues to have some dyspnea, improved slightly per patient. No nausea, appetite improving. IS to 1000ml. Hemodynamically acceptable, afebrile, O2 sat 93% on 2L NC. WBC 5.24 , Hgb 12.5, Plt 252. Na 143, K 3.6, BUN 15, Creatinine 0.58, Mg 2.2. CRP decreased to 7.2 today. BC NGTD x 1 day, consider stopping levaquin if negative x 2 days as highly suspect viral pneumonia given WBC, afebrile. POLST updated today. Will add mucinex to improve productivity of cough. 08/19/21: Migraine, nausea, light sensitivity. BP soft this am, added parameters for BP meds, denies symptoms. Thrush noted, start nystatin swish and swallow. On room air this morning. DC levaquin as suspect viral etiology of PNA - BC negative x 2 days. Lung sounds diminished, improving. Exam otherwise unremarkable. WBC 7.62, Hgb 12.2, Plt 273. Na 142, K 3.1, BUN 16, Creatinine 0.62, Mg 1.9. CRP 3.5. Patient to be transferred to quieter negative pressure isolation room this afternoon due to PAK. Hospitalization problems and plan: # COVID-19 # COVID Pneumonia - empiric antibiotics of levaquin provided given underlying emphysema - DC today. # Hypoxia # COPD # Moderate persistent asthma # Elevated CRP - 11.8 today - Continue supplemental oxygen to maintain O2 sat > 90% - BC x 2 - NGTD x 2 days - DC today Levaquin - BC negative x 2 days, WBC 7.62, afebrile. - Continue Remdesevir 200mg IV x 1, then 100mg IV daily x 4 doses - Continue Lovenox 40mg subq daily - Continue Dexamethasone 6mg PO daily x 5 days as patient was already on medrol dose pack for 5 days - Continue Adjunctive tx: zinc, vitamin C, Vitamin D - Encourage IS 10x/hr while awake - Repeat CBC, CMP, CRP, Mg in am # Hypokalemia, K 3.1 today - KDur 40mEQ today - Repeat in am # Thrush - Nystatin 5ml PO QID swish and swallow Chronic, stable conditions: # HTN - Continue clonidine 0.2mg in am, 0.1mg HS; losartan 100mg PO daily; verapamil 240mg PO daily ([facility] on hold) - parameters added - hold BP meds for BP < 100/60 # Cardiomyopathy - takes aspirin 81mg PO daily - on hold # Emphysema - takes trelegy, albuterol inhaler PRN, duonebs PRN and combivent # Moderate persistent asthma - continue singulair 10mg PO daily, flonase # Chronic maxillary sinusitis # Hypothyroidism - continue levothyroxine 150mcg PO daily # Pure hypercholesterolemia - Continue fenofibrate 145mg PO daily # GERD - Continue PPI 40mg PO BID (substitute pantoprazole), takes pepcid 40mg HS # Reactive arthritis - Continue sulfasalazine 500mg PO BID # Chronic low back pain # Depression/anxiety - continue wellbutrin 300mg PO daily, lexapro 20mg PO daily # Migraine - takes sumatriptan 100mg (1/2 tab at onset of headache, may repeat after 2 hours if needed); continue topamax 25mg PO daily; tylenol PRN # Arthropathy associated with GI conditions other than infectious # Tobacco abuse # Obesity Hospitalization details: # FEN: Oral fluids, K 3.1 today - 40 mEq today, regular diet # PPX: Lovenox 40mg subq daily, pantoprazole 40mg PO BID # Code status: FULL CODE, POLST updated # Emergency contact: Tang [phone] # Disposition: Patient to continue inpatient status for treatment of COVID-19, COVID pneumonia. Remdesevir to continue until Sunday08/21/21; possible discharge Sunday/Wednesday 08/22 based on clinical course - may require home oxygen upon discharge to maintain O2 > 90% given COPD.
[2021-08-19] MEDS: cloNIDine 0.1 MG Tab PO SCH ×2 (12:20→20:48)
[2021-08-19] MEDS: Ascorbic Acid 500 MG Tab PO SCH ×2 (12:21→20:47)
[2021-08-19] MEDS: guaiFENesin 600 MG Tab.ER PO SCH ×2 (12:21→20:47)
[2021-08-19] MEDS: Losartan 50 MG Tab PO SCH (12:21)
[2021-08-19] MEDS: Zinc (Zinc Gluconate) 50 MG Tab PO SCH (12:21)
[2021-08-19] MEDS: Cholecalciferol (Vitamin D3) 25 MCG Tab PO SCH (12:21)
[2021-08-19] MEDS: Nystatin Susp 100,000 Unit/ML 5 ML UD Cup PO SCH ×4 (13:02→21:01)
[2021-08-19] MEDS: Albuterol 8 GM Inhaler INH PRN (15:00)
[2021-08-19] MEDS: Topiramate 25 MG Tab PO SCH (20:49)
[2021-08-20] MEDS: Ketorolac 30 MG/ML SDV IVPUSH PRN ×4 (00:22→20:29)
[2021-08-20] MEDS: Ondansetron 4 MG Tab.DIS PO PRN ×2 (00:31→09:29)
[2021-08-20] MEDS: Pantoprazole 40 MG Tab.CR PO SCH ×3 (05:10→18:09)
[2021-08-20] MEDS: SUMAtriptan 25 MG Tab PO PRN ×2 (05:10→13:11)
[2021-08-20] MEDS: Levothyroxine 75 MCG Tab PO SCH ×2 (05:10→06:29)
[2021-08-20 09:05] LABS: ANION GAP 18.7 mmol/L (5-15); CHLORIDE,CL 103 mmol/L (98-107); SODIUM,NA 142 mmol/L (136-145)
[2021-08-20] MEDS: Escitalopram 10 MG Tab PO SCH (09:23)
[2021-08-20] MEDS: Zinc (Zinc Gluconate) 50 MG Tab PO SCH (09:31)
[2021-08-20] MEDS: Ascorbic Acid 500 MG Tab PO SCH ×2 (09:31→20:31)
[2021-08-20] MEDS: Cholecalciferol (Vitamin D3) 25 MCG Tab PO SCH (09:31)
[2021-08-20] MEDS: Dexamethasone 4 MG Tab PO SCH (09:31)
[2021-08-20] MEDS: TRELEGY INH SCH (09:32)
[2021-08-20] MEDS: Fluticasone Propionate Nasal Spray 16 GM Bottle NASBOTH SCH (09:32)
[2021-08-20] MEDS ORDERED: Potassium Chloride 20 MEQ Tab.ER PO ONE (09:34)
[2021-08-20] MEDS: cloNIDine 0.1 MG Tab PO SCH ×2 (09:40→20:08)
[2021-08-20] MEDS: Losartan 50 MG Tab PO SCH (09:40)
[2021-08-20] MEDS: Montelukast 10 MG Tab PO SCH (09:42)
[2021-08-20] MEDS: guaiFENesin 600 MG Tab.ER PO SCH ×2 (09:42→20:07)
[2021-08-20] MEDS: Acetaminophen 325 MG Tab PO PRN ×2 (09:45→22:17)
[2021-08-20] MEDS: Nystatin Susp 100,000 Unit/ML 5 ML UD Cup PO SCH ×4 (09:46→20:08)
[2021-08-20] MEDS: buPROPion 150 MG Tab.ER PO SCH (09:50)
[2021-08-20] MEDS: sulfaSALAzine 500 MG Tab PO SCH ×2 (09:50→18:11)
[2021-08-20] MEDS: Enoxaparin 40 MG/0.4 ML Syringe SUBCUT SCH (10:02)
--- NOTE | 2021-08-20 11:18 | PCM.PN ---
- General Info Date of Service: 08/20/21 Functional Status: Reports: Pain Controlled (headache improved with toradol, tylenol and PRN triptan) - Review of Systems General: Reports: Weakness (improving) HEENT: Reports: Headaches Pulmonary: Reports: Shortness of Breath (improved), Cough (quite productive last night), Sputum, Wheezing Cardiovascular: Reports: Dyspnea on Exertion Gastrointestinal: Reports: Decreased Appetite (appetite improved today), Nausea (improved this morning). Denies: Abdominal Pain, Diarrhea Genitourinary: Reports: No Symptoms Musculoskeletal: Reports: No Symptoms Skin: Reports: No Symptoms Neurological: Reports: No Symptoms Psychiatric: Reports: No Symptoms - Patient Data Vitals - Most Recent: Last Vital Signs Temp 98.8 F 08/20/21 06:20 Pulse 91 08/20/21 09:27 Resp 20 08/20/21 06:20 BP 138/78 08/20/21 09:40 Pulse Ox 95 08/20/21 09:53 Weight - Most Recent: 184 lb I&O - Last 24 Hours: Intake & Output 08/19/21 08/20/21 08/20/21 22:59 06:59 14:59 Intake Total 730 50 Balance 730 50 Lab Results Last 24 Hours: Laboratory Results - last 24 hr 08/20/21 08/20/21 Range/Units 05:11 07:15 WBC 8.59 (5.00-10.00) 10^3/uL RBC 4.53 (3.80-5.50) 10^6/uL Hgb 11.9 L (12.0-16.0) g/dL Hct 37.1 (37.0-47.0) % MCV 81.9 L (82.0-92.0) fL MCH 26.3 L (27.0-31.0) pg MCHC 32.1 (32.0-36.0) g/dL RDW 15.9 H (11.5-14.5) % Plt Count 310 (150-400) 10^3/uL MPV 9.6 (7.4-10.4) fL Immature Gran % (Auto) 0.5 (0.0-5.0) % Neut % (Auto) 69.3 (50.0-70.0) % Lymph % (Auto) 19.3 L (20.0-40.0) % Nelson % (Auto) 10.7 H (2.0-8.0) % Eos % (Auto) 0.0 L (1.0-3.0) % Baso % (Auto) 0.2 (0.0-1.0) % Neut # (Auto) 5.95 (2.50-7.00) 10^3/uL Lymph # (Auto) 1.66 (1.00-4.00) 10^3/uL Nelson # (Auto) 0.92 H (0.10-0.80) 10^3/uL Eos # (Auto) 0.00 L (0.10-0.30) 10^3/uL Baso # (Auto) 0.02 (0.00-0.10) 10^3/uL Immature Gran # (Auto) 0.04 (0.00-0.50) 10^3/uL Sodium 142 (136-145) mmol/L Potassium 3.3 L (3.5-5.1) mmol/L Chloride 103 (98-107) mmol/L Carbon Dioxide 23.6 (21.0-32.0) mmol/L Anion Gap 18.7 H (5-15) mmol/L BUN 16 (7-18) mg/dL Creatinine 0.58 (0.51-1.17) mg/dL Est Cr Clr Drug Dosing 90.50 mL/min Estimated GFR (MDRD) > 60 mL/min Glucose 136 (70-140) mg/dL Calcium 8.0 L (8.7-10.3) mg/dL Magnesium 2.1 (1.8-2.4) mg/dL Total Bilirubin 0.3 (0.2-1.0) mg/dL AST 22 (15-37) U/L ALT 37 (14-63) U/L Alkaline Phosphatase 100 (46-116) U/L C-Reactive Protein 6.4 H (0.0-0.9) mg/dL Total Protein 6.0 L (6.4-8.2) g/dL Albumin 2.74 L (3.40-5.00) g/dL James Results Last 24 Hours: Microbiology 08/16/21 23:55 Aerobic Blood Culture - Preliminary Blood - Venous - Lab Draw NO GROWTH AFTER 3 DAYS Anaerobic Blood Culture - Preliminary NO GROWTH AFTER 3 DAYS 08/16/21 23:40 Aerobic Blood Culture - Preliminary Blood - Venous NO GROWTH AFTER 3 DAYS Anaerobic Blood Culture - Preliminary NO GROWTH AFTER 3 DAYS Med Orders - Current: Current Medications Acetaminophen (Acetaminophen 325 Mg Tab) 650 mg PO Q4H PRN PRN Reason: Pain or Fever Last Admin: 08/20/21 09:45 Dose: 650 mg Documented by: Albuterol (Albuterol 8 Gm Inhaler) 0 gm INH Q4HR PRN PRN Reason: Dyspnea Last Admin: 08/19/21 15:00 Dose: 2 puff Documented by: Albuterol/Ipratropium (Albuterol/Ipratropium 3.0-0.5 Mg/3 Ml Neb Soln) 3 ml NEB Q4H PRN PRN Reason: Shortness of Breath Last Admin: 08/17/21 00:31 Dose: 3 ml Documented by: Ascorbic Acid (Ascorbic Acid 500 Mg Tab) 1,000 mg PO BID [facility] Last Admin: 08/20/21 09:31 Dose: Not Given Documented by: Bupropion HCl (Bupropion 150 Mg Tab.Er) 300 mg PO DAILY [facility] Last Admin: 08/20/21 09:50 Dose: 300 mg Documented by: Cholecalciferol (Cholecalciferol (Vitamin D3) 25 Mcg Tab) 25 mcg PO DAILY [facility] Last Admin: 08/20/21 09:31 Dose: Not Given Documented by: Clonidine HCl (Clonidine 0.1 Mg Tab) 0.1 mg PO QPM [facility] Last Admin: 08/19/21 20:48 Dose: 0.1 mg Documented by: Clonidine HCl (Clonidine 0.1 Mg Tab) 0.2 mg PO QAM [facility] Last Admin: 08/20/21 09:40 Dose: 0.2 mg Documented by: Dexamethasone (Dexamethasone 4 Mg Tab) 6 mg PO DAILY [facility] Stop: 08/21/21 12:00 Last Admin: 08/20/21 09:31 Dose: 6 mg Documented by: Enoxaparin Sodium (Enoxaparin 40 Mg/0.4 Ml Syringe) 40 mg SUBCUT Q24H [facility] Last Admin: 08/20/21 10:02 Dose: 40 mg Documented by: Escitalopram Oxalate (Escitalopram 10 Mg Tab) 20 mg PO DAILY [facility] Last Admin: 08/20/21 09:23 Dose: 20 mg Documented by: Fluticasone Propionate (Fluticasone Propionate Nasal [place] 16 Gm Bottle) 0 gm NASBOTH DAILY [facility] Last Admin: 08/20/21 09:32 Dose: 1 spray Documented by: Guaifenesin (Guaifenesin 600 Mg Tab.Er) 600 mg PO BID [facility] Last Admin: 08/20/21 09:42 Dose: Not Given Documented by: Sodium Chloride (Normal Saline) 50 mls @ 100 mls/hr IV ASDIRECTED [facility] Last Admin: 08/17/21 01:13 Dose: 100 mls/hr Documented by: Remdesivir 100 mg/ Sodium (Chloride) 250 mls @ 250 mls/hr IV Q24H [facility] Stop: 08/21/21 13:00 Last Admin: 08/19/21 11:36 Dose: 250 mls/hr Documented by: Ketorolac Tromethamine (Ketorolac 30 Mg/Ml Sdv) 15 mg IVPUSH Q6H PRN PRN Reason: Pain Stop: 08/25/21 00:14 Last Admin: 08/20/21 07:29 Dose: 15 mg Documented by: Levothyroxine Sodium (Levothyroxine 75 Mcg Tab) 150 mcg PO ACBREAKFAST [facility] Last Admin: 08/20/21 06:29 Dose: Not Given Documented by: Losartan Potassium (Losartan 50 Mg Tab) 100 mg PO DAILY [facility] Last Admin: 08/20/21 09:40 Dose: 100 mg Documented by: Montelukast Sodium (Montelukast 10 Mg Tab) 10 mg PO DAILY [facility] Last Admin: 08/20/21 09:42 Dose: Not Given Documented by: Nystatin (Nystatin Susp 100,000 Unit/Ml 5 Ml Ud Cup) 5 ml PO QID [facility] Last Admin: 08/20/21 09:46 Dose: Not Given Documented by: Ondansetron HCl (Ondansetron 4 Mg Tab.Dis) 4 mg PO Q6H PRN PRN Reason: Nausea/Vomiting Last Admin: 08/20/21 09:29 Dose: 4 mg Documented by: Pantoprazole Sodium (Pantoprazole 40 Mg Tab.Cr) 40 mg PO BIDAC [facility] Last Admin: 08/20/21 06:29 Dose: Not Given Documented by: Ptom- Trelegy (Inhaler) 1 each INH DAILY [facility] Last Admin: 08/20/21 09:32 Dose: 1 each Documented by: Sulfasalazine (Sulfasalazine 500 Mg Tab) 500 mg PO BIDMEALS [facility] Last Admin: 08/20/21 09:50 Dose: Not Given Documented by: Sumatriptan Succinate (Sumatriptan 25 Mg Tab) 50 mg PO ASDIRECTED PRN PRN Reason: Headache Last Admin: 08/20/21 05:10 Dose: 50 mg Documented by: Topiramate (Topiramate 25 Mg Tab) 25 mg PO BEDTIME [facility] Last Admin: 08/19/21 20:49 Dose: 25 mg Documented by: Zinc Gluconate (Zinc (Zinc Gluconate) 50 Mg Tab) 50 mg PO DAILY [facility] Last Admin: 08/20/21 09:31 Dose: Not Given Documented by: Discontinued Medications Sodium Chloride (Normal Saline) 50 mls @ 200 mls/min IV ASDIRECTED [facility] Last Admin: 08/16/21 21:24 Dose: 200 mls/min Documented by: Sodium Chloride (Normal Saline) 1,000 mls @ 999 mls/hr IV .BOLUS ONE Stop: 08/16/21 22:06 Last Admin: 08/16/21 21:26 Dose: 999 mls/hr Documented by: Levofloxacin/Dextrose 500 mg/ (Premix) 100 mls @ 100 mls/hr IV ONETIME ONE Stop: 08/16/21 23:51 Last Admin: 08/16/21 23:06 Dose: 100 mls/hr Documented by: Sodium Chloride (Normal Saline) Confirm Administered Dose 50 mls @ as directed .ROUTE .STK-MED ONE Stop: 08/17/21 00:26 Last Admin: 08/17/21 00:51 Dose: Not Given Documented by: Remdesivir 200 mg/ Sodium (Chloride) 250 mls @ 250 mls/hr IV ONETIME ONE Stop: 08/17/21 10:48 Last Admin: 08/17/21 13:33 Dose: 250 mls/hr Documented by: Levofloxacin/Dextrose 750 mg/ (Premix) 150 mls @ 100 mls/hr IV Q24H [facility] Last Admin: 08/18/21 20:57 Dose: 100 mls/hr Documented by: Iopamidol (Iopamidol 755 Mg/Ml 75 Ml Bottle) 75 ml IVPUSH ONETIME ONE Stop: 08/16/21 20:36 Last Admin: 08/16/21 21:24 Dose: 75 ml Documented by: Methylprednisolone Sodium Succinate (Methylprednisolone Sodium Succinate 125 Mg/2 Ml Sdv) 40 mg IVPUSH ONETIME ONE Stop: 08/16/21 22:53 Last Admin: 08/16/21 23:01 Dose: 40 mg Documented by: Non-Formulary Medication (Ipratropium/Albuterol Sulfate [Combivent Respimat 20- 100 Mcg]) 1 puff IH Q4H PRN PRN Reason: Shortness of Breath Potassium Chloride (Potassium Chloride 20 Meq Tab.Er) 40 meq PO ONETIME ONE Stop: 08/19/21 11:14 Last Admin: 08/19/21 11:34 Dose: 40 meq Documented by: Potassium Chloride (Potassium Chloride 20 Meq Tab.Er) 40 meq PO ONETIME ONE Stop: 08/20/21 09:35 Last Admin: 08/20/21 09:54 Dose: 40 meq Documented by: Sodium Chloride (Sodium Chloride 0.9% 10 Ml Syringe) 10 ml FLUSH Q8HR PRN PRN Reason: keep vein open Last Admin: 08/16/21 20:27 Dose: 10 ml Documented by: - Exam Quality Assessment: Supplemental Oxygen (91% on 1L, trial on room air), DVT Prophylaxis General: Alert, Oriented, Cooperative, No Acute Distress HEENT: Pupils Equal, Pupils Reactive, Mucous Membr. Moist/[place], Other (thrush improving with nystatin PO) Neck: Supple, Trachea Midline Lungs: Decreased Breath Sounds. No: Crackles, Rhonchi, Wheezing Cardiovascular: Regular Rate, Regular Rhythm, No Murmurs GI/Abdominal Exam: Normal Bowel Sounds, Soft, Non-Tender, No Distention (Female) Exam: Deferred Extremities: Normal Inspection, Normal Range of Motion, Non-Tender, No Pedal Edema, Normal Capillary Refill Peripheral Pulses: 2+: Dorsalis Pedis (L), Dorsalis Pedis (R) Skin: Warm, Dry, Intact Neurological: No New Focal Deficit Psy/Mental Status: Alert, Normal Affect, Normal Mood - Patient Data Lab Results Last 24 hrs: Laboratory Results - last 24 hr 08/20/21 08/20/21 Range/Units 05:11 07:15 WBC 8.59 (5.00-10.00) 10^3/uL RBC 4.53 (3.80-5.50) 10^6/uL Hgb 11.9 L (12.0-16.0) g/dL Hct 37.1 (37.0-47.0) % MCV 81.9 L (82.0-92.0) fL MCH 26.3 L (27.0-31.0) pg MCHC 32.1 (32.0-36.0) g/dL RDW 15.9 H (11.5-14.5) % Plt Count 310 (150-400) 10^3/uL MPV 9.6 (7.4-10.4) fL Immature Gran % (Auto) 0.5 (0.0-5.0) % Neut % (Auto) 69.3 (50.0-70.0) % Lymph % (Auto) 19.3 L (20.0-40.0) % Nelson % (Auto) 10.7 H (2.0-8.0) % Eos % (Auto) 0.0 L (1.0-3.0) % Baso % (Auto) 0.2 (0.0-1.0) % Neut # (Auto) 5.95 (2.50-7.00) 10^3/uL Lymph # (Auto) 1.66 (1.00-4.00) 10^3/uL Nelson # (Auto) 0.92 H (0.10-0.80) 10^3/uL Eos # (Auto) 0.00 L (0.10-0.30) 10^3/uL Baso # (Auto) 0.02 (0.00-0.10) 10^3/uL Immature Gran # (Auto) 0.04 (0.00-0.50) 10^3/uL Sodium 142 (136-145) mmol/L Potassium 3.3 L (3.5-5.1) mmol/L Chloride 103 (98-107) mmol/L Carbon Dioxide 23.6 (21.0-32.0) mmol/L Anion Gap 18.7 H (5-15) mmol/L BUN 16 (7-18) mg/dL Creatinine 0.58 (0.51-1.17) mg/dL Est Cr Clr Drug Dosing 90.50 mL/min Estimated GFR (MDRD) > 60 mL/min Glucose 136 (70-140) mg/dL Calcium 8.0 L (8.7-10.3) mg/dL Magnesium 2.1 (1.8-2.4) mg/dL Total Bilirubin 0.3 (0.2-1.0) mg/dL AST 22 (15-37) U/L ALT 37 (14-63) U/L Alkaline Phosphatase 100 (46-116) U/L C-Reactive Protein 6.4 H (0.0-0.9) mg/dL Total Protein 6.0 L (6.4-8.2) g/dL Albumin 2.74 L (3.40-5.00) g/dL Result Diagrams: 08/20/21 05:11 08/20/21 07:15 James Results Last 24 hrs: Microbiology 08/16/21 23:55 Aerobic Blood Culture - Preliminary Blood - Venous - Lab Draw NO GROWTH AFTER 3 DAYS Anaerobic Blood Culture - Preliminary NO GROWTH AFTER 3 DAYS 08/16/21 23:40 Aerobic Blood Culture - Preliminary Blood - Venous NO GROWTH AFTER 3 DAYS Anaerobic Blood Culture - Preliminary NO GROWTH AFTER 3 DAYS Sepsis Event Note - Evaluation Sepsis Screening Result: No Definite Risk - Focused Exam Vital Signs: Vital Signs Temp Pulse Resp BP BP Pulse Ox 08/20/21 09:53 95 08/20/21 09:40 138/78 08/20/21 09:33 93 L 08/20/21 09:27 91 137/86 94 L 08/20/21 06:20 98.8 F 82 20 137/89 92 L 08/20/21 00:40 97.5 F 82 24 H 126/90 94 L - Problem List Review Problem List Initiated/Reviewed/Updated: Yes - My Orders Last 24 Hours: My Active Orders 08/19/21 13:00 Nystatin [Mycostatin] 5 ml PO QID 08/20/21 00:13 Ketorolac [Toradol] 15 mg IVPUSH Q6H PRN 08/21/21 05:11 CBC WITH AUTO DIFF [HEME] AM CMP [COMPREHENSIVE METABOLIC PN,CMP] [CHEM] AM CRP [C-REACTIVE PROTEIN] [CHEM] AM MG [MAGNESIUM] [CHEM] AM - Plan Plan:: HPI summary: Piper is a 61yF patient with a 5 day hx of increased dyspnea and chest tightness. Patient was started on a medrol dose pack for bronchitis on 08/11. Initial COVID test was negative on 08/08/21, COVID test was positive on 08/15/21 and patient received monoclonal antibody treatment at [facility] yesterday prior to presenting to the ER last evening for worsening dyspnea r/t COVID-19. PMH includes emphysema, moderate persistent asthma and current smoking, though patient indicates that she is now trying to quit. ED course: EKG NSR. D-dimer 597, CTA negative for PE - indicated ground glass opacities bilaterally. 1L NS bolus in ER, solumedrol 40mg IV x 1 dose and initial dose of levaquin 750mg IV after blood cultures were obtained. Patient requiring supplemental oxygen to maintain O2 sat > 90%, patient admitted to inpatient status per Dr Palacios. Hospital course: 08/17/21: No calls overnight after admission. Breathing reportedly improved with oxygen. Dyspnea and cough continue. Intermittent nausea and diarrhea. O2 stable on minimal O2 at 2L. Vitals stable, afebrile. WBC 5.16, Hgb 12.5, Plt 222. Na 140, K 3.9, BUN 9, Creatinine 0.50, lactic acid 0.8, AST 38, alk phos 121, trop negative, albumin 3.09. CRP 11.8. ABG's stable - pH 7.45, PCO2 32, HCO3 21.9. Lung sounds diminished with crackles, rhonchi and wheezing. Patient declines nicotine patch, states she is going to try to quit smoking. Tyrese ordered PRN for nausea. 08/18/21: No calls overnight. Cough productive this morning, continues to have some dyspnea, improved slightly per patient. No nausea, appetite improving. IS to 1000ml. Hemodynamically acceptable, afebrile, O2 sat 93% on 2L NC. WBC 5.24 , Hgb 12.5, Plt 252. Na 143, K 3.6, BUN 15, Creatinine 0.58, Mg 2.2. CRP decreased to 7.2 today. BC NGTD x 1 day, consider stopping levaquin if negative x 2 days as highly suspect viral pneumonia given WBC, afebrile. POLST updated today. Will add mucinex to improve productivity of cough. 08/19/21: Migraine, nausea, light sensitivity. BP soft this am, added parameters for BP meds, denies symptoms. Thrush noted, start nystatin swish and swallow. On room air this morning. DC levaquin as suspect viral etiology of PNA - BC negative x 2 days. Lung sounds diminished, improving. Exam otherwise unremarkable. WBC 7.62, Hgb 12.2, Plt 273. Na 142, K 3.1, BUN 16, Creatinine 0.62, Mg 1.9. CRP 3.5. Patient to be transferred to quieter negative pressure isolation room this afternoon due to PAK. 08/20/21: Nurse called last night to request additional pain medication for headache. Toradol 15mg IV Q6H started. Patient has norco on home med list, however no Rx since December,. Would avoid restarting opioids unless absolutely necessary. Headache and nausea improved this morning. Cough was productive overnight. No new concerns. Lung sounds diminished, no wheezing or rhonchi appreciated. Vitals stable, blood pressure improved today. WBC 8.59, Hgb 11.9, Plt 310. Na 142, K 3.3, BUN 16, [employer] 0.58, Ca 8.0, Mg 2.1, CRP 6.4. Patient transferred to quieter room yesterday afternoon due to headache. Hospitalization problems and plan: # COVID-19 # COVID Pneumonia - empiric antibiotics of levaquin provided given underlying emphysema - DC today. # Hypoxia # COPD # Moderate persistent asthma # Elevated CRP - 11.8 today - Continue supplemental oxygen to maintain O2 sat > 90% - BC x 2 - NGTD x 3 days - Continue Remdesevir 200mg IV x 1, then 100mg IV daily x 4 doses - Continue Lovenox 40mg subq daily - Continue Dexamethasone 6mg PO daily x 5 days as patient was already on medrol dose pack for 5 days - Continue Adjunctive tx: zinc, vitamin C, Vitamin D - Encourage IS 10x/hr while awake - Repeat CBC, CMP, CRP, Mg in am # Hypokalemia, K 3.3 today - Repeat KDur 40mEQ today - Repeat in am # Thrush; improving with nystatin - Continue Nystatin 5ml PO QID swish and swallow Chronic, stable conditions: # HTN - Continue clonidine 0.2mg in am, 0.1mg HS; losartan 100mg PO daily; verapamil 240mg PO daily ([facility] on hold) - parameters added - hold BP meds for BP < 100/60 # Cardiomyopathy - takes aspirin 81mg PO daily - on hold # Emphysema - takes trelegy, albuterol inhaler PRN, duonebs PRN and combivent # Moderate persistent asthma - continue singulair 10mg PO daily, flonase # Chronic maxillary sinusitis # Hypothyroidism - continue levothyroxine 150mcg PO daily # Pure hypercholesterolemia - Continue fenofibrate 145mg PO daily # GERD - Continue PPI 40mg PO BID (substitute pantoprazole), takes pepcid 40mg HS # Reactive arthritis - Continue sulfasalazine 500mg PO BID # Chronic low back pain # Depression/anxiety - continue wellbutrin 300mg PO daily, lexapro 20mg PO daily # Migraine - takes sumatriptan 100mg (1/2 tab at onset of headache, may repeat after 2 hours if needed); continue topamax 25mg PO daily; tylenol PRN # Arthropathy associated with GI conditions other than infectious # Tobacco abuse # Obesity Hospitalization details: # FEN: Oral fluids, K 3.3 today - 40 mEq today, regular diet # PPX: Lovenox 40mg subq daily, pantoprazole 40mg PO BID # Code status: FULL CODE, POLST updated # Emergency contact: Tang [phone] # Disposition: Patient to continue inpatient status for treatment of COVID-19, COVID pneumonia. Remdesevir to continue until Sunday08/21/21; possible discharge Sunday/Wednesday 08/22 based on clinical course - may require home oxygen upon discharge to maintain O2 > 90% given COPD. Patient requesting [facility] monitoring for COVID upon discharge home.
[2021-08-20] MEDS: REMDESIVIR 100 MG in Sodium Chloride 0.9% 250 ML IV SCH (11:49)
[2021-08-20] MEDS: Albuterol 8 GM Inhaler INH PRN (18:16)
[2021-08-20] MEDS: Topiramate 25 MG Tab PO SCH (20:07)
[2021-08-21] MEDS: Trolamine Salicylate/Aloe Vera 10% Crm 85 GM Tube TOP PRN ×2 (00:40→06:58)
[2021-08-21] MEDS: Albuterol 8 GM Inhaler INH PRN ×2 (01:25→12:24)
[2021-08-21] MEDS: Ketorolac 30 MG/ML SDV IVPUSH PRN ×3 (01:26→17:30)
[2021-08-21] MEDS: Acetaminophen 325 MG Tab PO PRN ×3 (02:49→19:31)
[2021-08-21] MEDS: Levothyroxine 75 MCG Tab PO SCH (06:34)
[2021-08-21] MEDS: SUMAtriptan 25 MG Tab PO PRN ×2 (06:34→19:30)
[2021-08-21] MEDS: Pantoprazole 40 MG Tab.CR PO SCH ×2 (06:34→17:35)
[2021-08-21 08:21] LABS: ANION GAP 11.5 mmol/L (5-15); CHLORIDE,CL 104 mmol/L (98-107); SODIUM,NA 140 mmol/L (136-145)
[2021-08-21] MEDS: TRELEGY INH SCH (09:42)
[2021-08-21] MEDS: Fluticasone Propionate Nasal Spray 16 GM Bottle NASBOTH SCH (09:42)
[2021-08-21] MEDS: Nystatin Susp 100,000 Unit/ML 5 ML UD Cup PO SCH ×4 (09:43→22:09)
[2021-08-21] MEDS: Escitalopram 10 MG Tab PO SCH (09:47)
[2021-08-21] MEDS: buPROPion 150 MG Tab.ER PO SCH (09:48)
[2021-08-21] MEDS: Dexamethasone 4 MG Tab PO SCH (09:49)
[2021-08-21] MEDS: cloNIDine 0.1 MG Tab PO SCH ×2 (09:52→22:08)
[2021-08-21] MEDS: Losartan 50 MG Tab PO SCH (09:52)
[2021-08-21] MEDS: Ascorbic Acid 500 MG Tab PO SCH ×3 (09:53→22:13)
[2021-08-21] MEDS: sulfaSALAzine 500 MG Tab PO SCH ×2 (09:53→17:35)
[2021-08-21] MEDS: Montelukast 10 MG Tab PO SCH (09:53)
[2021-08-21] MEDS: guaiFENesin 600 MG Tab.ER PO SCH ×2 (09:54→22:08)
[2021-08-21] MEDS: Cholecalciferol (Vitamin D3) 25 MCG Tab PO SCH (09:54)
[2021-08-21] MEDS: Zinc (Zinc Gluconate) 50 MG Tab PO SCH (09:54)
[2021-08-21] MEDS: Enoxaparin 40 MG/0.4 ML Syringe SUBCUT SCH (10:32)
[2021-08-21] MEDS: REMDESIVIR 100 MG in Sodium Chloride 0.9% 250 ML IV SCH (12:27)
--- NOTE | 2021-08-21 12:38 | PCM.PN ---
- General Info Date of Service: 08/21/21 Subjective Update: Headache and nausea improving. Patient reports she continues to be fatigued and wheezy. Her cough has been productive. Functional Status: Reports: Pain Controlled, Tolerating Diet, Urinating, Incentive Spirometry (1000ml). Denies: New Symptoms - Review of Systems General: Reports: No Symptoms, Fatigue. Denies: Fever, Chills HEENT: Reports: Headaches (improved) Pulmonary: Reports: Shortness of Breath, Pleuritic Chest Pain, Cough, Sputum, Wheezing Cardiovascular: Reports: Dyspnea on Exertion Gastrointestinal: Reports: No Symptoms. Denies: Nausea Genitourinary: Reports: No Symptoms Musculoskeletal: Reports: No Symptoms Skin: Reports: No Symptoms Neurological: Reports: No Symptoms Psychiatric: Reports: No Symptoms - Patient Data Vitals - Most Recent: Last Vital Signs Temp 97.3 F 08/21/21 11:00 Pulse 84 08/21/21 11:00 Resp 24 H 08/21/21 11:00 BP 115/75 08/21/21 11:00 Pulse Ox 91 L 08/21/21 11:00 Weight - Most Recent: 184 lb I&O - Last 24 Hours: Intake & Output 08/20/21 08/21/21 08/21/21 23:59 06:59 14:59 Intake Total Balance Lab Results Last 24 Hours: Laboratory Results - last 24 hr 08/21/21 08/21/21 Range/Units 07:27 07:27 WBC 8.39 (5.00-10.00) 10^3/uL RBC 4.36 (3.80-5.50) 10^6/uL Hgb 11.4 L (12.0-16.0) g/dL Hct 36.0 L (37.0-47.0) % MCV 82.6 (82.0-92.0) fL MCH 26.1 L (27.0-31.0) pg MCHC 31.7 L (32.0-36.0) g/dL RDW 15.6 H (11.5-14.5) % Plt Count 309 (150-400) 10^3/uL MPV 9.6 (7.4-10.4) fL Immature Gran % (Auto) 0.2 (0.0-5.0) % Neut % (Auto) 69.5 (50.0-70.0) % Lymph % (Auto) 18.1 L (20.0-40.0) % Payette % (Auto) 11.7 H (2.0-8.0) % Eos % (Auto) 0.1 L (1.0-3.0) % Baso % (Auto) 0.4 (0.0-1.0) % Neut # (Auto) 5.83 (2.50-7.00) 10^3/uL Lymph # (Auto) 1.52 (1.00-4.00) 10^3/uL Payette # (Auto) 0.98 H (0.10-0.80) 10^3/uL Eos # (Auto) 0.01 L (0.10-0.30) 10^3/uL Baso # (Auto) 0.03 (0.00-0.10) 10^3/uL Immature Gran # (Auto) 0.02 (0.00-0.50) 10^3/uL Anisocytosis 1+ slight Sodium 140 (136-145) mmol/L Potassium 3.7 (3.5-5.1) mmol/L Chloride 104 (98-107) mmol/L Carbon Dioxide 28.2 (21.0-32.0) mmol/L Anion Gap 11.5 (5-15) mmol/L BUN 17 (7-18) mg/dL Creatinine 0.60 (0.51-1.17) mg/dL Est Cr Clr Drug Dosing 87.48 mL/min Estimated GFR (MDRD) > 60 mL/min Glucose 122 (70-140) mg/dL Calcium 8.0 L (8.7-10.3) mg/dL Magnesium 1.9 (1.8-2.4) mg/dL Total Bilirubin 0.4 (0.2-1.0) mg/dL AST 19 (15-37) U/L ALT 39 (14-63) U/L Alkaline Phosphatase 96 (46-116) U/L C-Reactive Protein 11.9 H (0.0-0.9) mg/dL Total Protein 6.6 (6.4-8.2) g/dL Albumin 2.75 L (3.40-5.00) g/dL James Results Last 24 Hours: Microbiology 08/16/21 23:55 Aerobic Blood Culture - Preliminary Blood - Venous - Lab Draw NO GROWTH AFTER 4 DAYS Anaerobic Blood Culture - Preliminary NO GROWTH AFTER 4 DAYS 08/16/21 23:40 Aerobic Blood Culture - Preliminary Blood - Venous NO GROWTH AFTER 4 DAYS Anaerobic Blood Culture - Preliminary NO GROWTH AFTER 4 DAYS Med Orders - Current: Current Medications Acetaminophen (Acetaminophen 325 Mg Tab) 650 mg PO Q4H PRN PRN Reason: Pain or Fever Last Admin: 08/21/21 02:49 Dose: 650 mg Documented by: Albuterol (Albuterol 8 Gm Inhaler) 0 gm INH Q4HR PRN PRN Reason: Dyspnea Last Admin: 08/21/21 12:24 Dose: 2 puff Documented by: Albuterol/Ipratropium (Albuterol/Ipratropium 3.0-0.5 Mg/3 Ml Neb Soln) 3 ml NEB Q4H PRN PRN Reason: Shortness of Breath Last Admin: 08/17/21 00:31 Dose: 3 ml Documented by: Ascorbic Acid (Ascorbic Acid 500 Mg Tab) 1,000 mg PO BID [facility] Last Admin: 08/21/21 09:53 Dose: Not Given Documented by: Bupropion HCl (Bupropion 150 Mg Tab.Er) 300 mg PO DAILY [facility] Last Admin: 08/21/21 09:48 Dose: 300 mg Documented by: Cholecalciferol (Cholecalciferol (Vitamin D3) 25 Mcg Tab) 25 mcg PO DAILY [facility] Last Admin: 08/21/21 09:54 Dose: Not Given Documented by: Clonidine HCl (Clonidine 0.1 Mg Tab) 0.1 mg PO QPM [facility] Last Admin: 08/20/21 20:08 Dose: 0.1 mg Documented by: Clonidine HCl (Clonidine 0.1 Mg Tab) 0.2 mg PO QAM [facility] Last Admin: 08/21/21 09:52 Dose: 0.2 mg Documented by: Enoxaparin Sodium (Enoxaparin 40 Mg/0.4 Ml Syringe) 40 mg SUBCUT Q24H [facility] Last Admin: 08/21/21 10:32 Dose: 40 mg Documented by: Escitalopram Oxalate (Escitalopram 10 Mg Tab) 20 mg PO DAILY [facility] Last Admin: 08/21/21 09:47 Dose: 20 mg Documented by: Fluticasone Propionate (Fluticasone Propionate Nasal [place] 16 Gm Bottle) 0 gm NASBOTH DAILY [facility] Last Admin: 08/21/21 09:42 Dose: 1 spray Documented by: Guaifenesin (Guaifenesin 600 Mg Tab.Er) 600 mg PO BID [facility] Last Admin: 08/21/21 09:54 Dose: 600 mg Documented by: Sodium Chloride (Normal Saline) 50 mls @ 100 mls/hr IV ASDIRECTED [facility] Last Admin: 08/17/21 01:13 Dose: 100 mls/hr Documented by: Remdesivir 100 mg/ Sodium (Chloride) 250 mls @ 250 mls/hr IV Q24H [facility] Stop: 08/21/21 13:00 Last Admin: 08/21/21 12:27 Dose: 250 mls/hr Documented by: Ketorolac Tromethamine (Ketorolac 30 Mg/Ml Sdv) 15 mg IVPUSH Q6H PRN PRN Reason: Pain Stop: 08/25/21 00:14 Last Admin: 08/21/21 09:40 Dose: 15 mg Documented by: Levothyroxine Sodium (Levothyroxine 75 Mcg Tab) 150 mcg PO ACBREAKFAST [facility] Last Admin: 08/21/21 06:34 Dose: 150 mcg Documented by: Losartan Potassium (Losartan 50 Mg Tab) 100 mg PO DAILY [facility] Last Admin: 08/21/21 09:52 Dose: 100 mg Documented by: Montelukast Sodium (Montelukast 10 Mg Tab) 10 mg PO DAILY [facility] Last Admin: 08/21/21 09:53 Dose: Not Given Documented by: Nystatin (Nystatin Susp 100,000 Unit/Ml 5 Ml Ud Cup) 5 ml PO QID [facility] Last Admin: 08/21/21 12:24 Dose: 5 ml Documented by: Ondansetron HCl (Ondansetron 4 Mg Tab.Dis) 4 mg PO Q6H PRN PRN Reason: Nausea/Vomiting Last Admin: 08/20/21 09:29 Dose: 4 mg Documented by: Pantoprazole Sodium (Pantoprazole 40 Mg Tab.Cr) 40 mg PO BIDAC [facility] Last Admin: 08/21/21 06:34 Dose: 40 mg Documented by: Ptom- Trelegy (Inhaler) 1 each INH DAILY [facility] Last Admin: 08/21/21 09:42 Dose: 1 each Documented by: Sulfasalazine (Sulfasalazine 500 Mg Tab) 500 mg PO BIDMEALS [facility] Last Admin: 08/21/21 09:53 Dose: Not Given Documented by: Sumatriptan Succinate (Sumatriptan 25 Mg Tab) 50 mg PO ASDIRECTED PRN PRN Reason: Headache Last Admin: 08/21/21 06:34 Dose: 50 mg Documented by: Topiramate (Topiramate 25 Mg Tab) 50 mg PO BEDTIME [facility] Trolamine Salicylate (Trolamine Salicylate/Aloe Vera 10% Crm 85 Gm Tube) 0 gm TOP Q6H PRN PRN Reason: Pain Last Admin: 08/21/21 06:58 Dose: 1 applic Documented by: Zinc Gluconate (Zinc (Zinc Gluconate) 50 Mg Tab) 50 mg PO DAILY [facility] Last Admin: 08/21/21 09:54 Dose: Not Given Documented by: Discontinued Medications Dexamethasone (Dexamethasone 4 Mg Tab) 6 mg PO DAILY [facility] Stop: 08/21/21 12:00 Last Admin: 08/21/21 09:49 Dose: 6 mg Documented by: Sodium Chloride (Normal Saline) 50 mls @ 200 mls/min IV ASDIRECTED [facility] Last Admin: 08/16/21 21:24 Dose: 200 mls/min Documented by: Sodium Chloride (Normal Saline) 1,000 mls @ 999 mls/hr IV .BOLUS ONE Stop: 08/16/21 22:06 Last Admin: 08/16/21 21:26 Dose: 999 mls/hr Documented by: Levofloxacin/Dextrose 500 mg/ (Premix) 100 mls @ 100 mls/hr IV ONETIME ONE Stop: 08/16/21 23:51 Last Admin: 08/16/21 23:06 Dose: 100 mls/hr Documented by: Sodium Chloride (Normal Saline) Confirm Administered Dose 50 mls @ as directed .ROUTE .STK-MED ONE Stop: 08/17/21 00:26 Last Admin: 08/17/21 00:51 Dose: Not Given Documented by: Remdesivir 200 mg/ Sodium (Chloride) 250 mls @ 250 mls/hr IV ONETIME ONE Stop: 08/17/21 10:48 Last Admin: 08/17/21 13:33 Dose: 250 mls/hr Documented by: Levofloxacin/Dextrose 750 mg/ (Premix) 150 mls @ 100 mls/hr IV Q24H [facility] Last Admin: 08/18/21 20:57 Dose: 100 mls/hr Documented by: Iopamidol (Iopamidol 755 Mg/Ml 75 Ml Bottle) 75 ml IVPUSH ONETIME ONE Stop: 08/16/21 20:36 Last Admin: 08/16/21 21:24 Dose: 75 ml Documented by: Methylprednisolone Sodium Succinate (Methylprednisolone Sodium Succinate 125 Mg/2 Ml Sdv) 40 mg IVPUSH ONETIME ONE Stop: 08/16/21 22:53 Last Admin: 08/16/21 23:01 Dose: 40 mg Documented by: Non-Formulary Medication (Ipratropium/Albuterol Sulfate [Combivent Respimat 20- 100 Mcg]) 1 puff IH Q4H PRN PRN Reason: Shortness of Breath Potassium Chloride (Potassium Chloride 20 Meq Tab.Er) 40 meq PO ONETIME ONE Stop: 08/19/21 11:14 Last Admin: 08/19/21 11:34 Dose: 40 meq Documented by: Potassium Chloride (Potassium Chloride 20 Meq Tab.Er) 40 meq PO ONETIME ONE Stop: 08/20/21 09:35 Last Admin: 08/20/21 09:54 Dose: 40 meq Documented by: Sodium Chloride (Sodium Chloride 0.9% 10 Ml Syringe) 10 ml FLUSH Q8HR PRN PRN Reason: keep vein open Last Admin: 08/16/21 20:27 Dose: 10 ml Documented by: Topiramate (Topiramate 25 Mg Tab) 25 mg PO BEDTIME [facility] Last Admin: 08/20/21 20:07 Dose: 25 mg Documented by: - Exam Quality Assessment: DVT Prophylaxis. No: Supplemental Oxygen General: Alert, Oriented, Cooperative, No Acute Distress HEENT: Pupils Equal, Pupils Reactive, Mucous Membr. Moist/Dowling Neck: Supple, Trachea Midline Lungs: Decreased Breath Sounds, Rhonchi, Wheezing. No: Crackles Cardiovascular: Regular Rate, Regular Rhythm, No Murmurs GI/Abdominal Exam: Normal Bowel Sounds, Soft, Non-Tender, No Distention (Female) Exam: Deferred Back Exam: Normal Inspection, Full Range of Motion Extremities: Normal Inspection, Normal Range of Motion, Non-Tender, No Pedal Edema, Normal Capillary Refill Peripheral Pulses: 2+: Dorsalis Pedis (L), Dorsalis Pedis (R) Skin: Warm, Dry, Intact Neurological: No New Focal Deficit Psy/Mental Status: Alert, Normal Affect, Normal Mood - Patient Data Lab Results Last 24 hrs: Laboratory Results - last 24 hr 08/21/21 08/21/21 Range/Units 07:27 07:27 WBC 8.39 (5.00-10.00) 10^3/uL RBC 4.36 (3.80-5.50) 10^6/uL Hgb 11.4 L (12.0-16.0) g/dL Hct 36.0 L (37.0-47.0) % MCV 82.6 (82.0-92.0) fL MCH 26.1 L (27.0-31.0) pg MCHC 31.7 L (32.0-36.0) g/dL RDW 15.6 H (11.5-14.5) % Plt Count 309 (150-400) 10^3/uL MPV 9.6 (7.4-10.4) fL Immature Gran % (Auto) 0.2 (0.0-5.0) % Neut % (Auto) 69.5 (50.0-70.0) % Lymph % (Auto) 18.1 L (20.0-40.0) % Payette % (Auto) 11.7 H (2.0-8.0) % Eos % (Auto) 0.1 L (1.0-3.0) % Baso % (Auto) 0.4 (0.0-1.0) % Neut # (Auto) 5.83 (2.50-7.00) 10^3/uL Lymph # (Auto) 1.52 (1.00-4.00) 10^3/uL Payette # (Auto) 0.98 H (0.10-0.80) 10^3/uL Eos # (Auto) 0.01 L (0.10-0.30) 10^3/uL Baso # (Auto) 0.03 (0.00-0.10) 10^3/uL Immature Gran # (Auto) 0.02 (0.00-0.50) 10^3/uL Anisocytosis 1+ slight Sodium 140 (136-145) mmol/L Potassium 3.7 (3.5-5.1) mmol/L Chloride 104 (98-107) mmol/L Carbon Dioxide 28.2 (21.0-32.0) mmol/L Anion Gap 11.5 (5-15) mmol/L BUN 17 (7-18) mg/dL Creatinine 0.60 (0.51-1.17) mg/dL Est Cr Clr Drug Dosing 87.48 mL/min Estimated GFR (MDRD) > 60 mL/min Glucose 122 (70-140) mg/dL Calcium 8.0 L (8.7-10.3) mg/dL Magnesium 1.9 (1.8-2.4) mg/dL Total Bilirubin 0.4 (0.2-1.0) mg/dL AST 19 (15-37) U/L ALT 39 (14-63) U/L Alkaline Phosphatase 96 (46-116) U/L C-Reactive Protein 11.9 H (0.0-0.9) mg/dL Total Protein 6.6 (6.4-8.2) g/dL Albumin 2.75 L (3.40-5.00) g/dL Result Diagrams: 08/21/21 07:27 08/21/21 07:27 James Results Last 24 hrs: Microbiology 08/16/21 23:55 Aerobic Blood Culture - Preliminary Blood - Venous - Lab Draw NO GROWTH AFTER 4 DAYS Anaerobic Blood Culture - Preliminary NO GROWTH AFTER 4 DAYS 08/16/21 23:40 Aerobic Blood Culture - Preliminary Blood - Venous NO GROWTH AFTER 4 DAYS Anaerobic Blood Culture - Preliminary NO GROWTH AFTER 4 DAYS Sepsis Event Note - Evaluation Sepsis Screening Result: No Definite Risk - Focused Exam Vital Signs: Vital Signs Temp Pulse Resp BP BP Pulse Ox 08/21/21 11:00 97.3 F 84 24 H 115/75 91 L 08/21/21 09:52 125/86 08/21/21 06:51 97.4 F 78 18 144/92 H 91 L 08/21/21 01:20 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 Patient was started on a medrol dose pack for bronchitis on 08/11. Initial COVID test was negative on 08/08/21, COVID test was positive on 08/15/21 and patient received monoclonal antibody treatment at [facility] yesterday prior to presenting to the ER last evening for worsening dyspnea r/t COVID-19. PMH includes emphysema, moderate persistent asthma and current smoking, though patient indicates that she is now trying to quit. ED course: EKG NSR. D-dimer 597, CTA negative for PE - indicated ground glass opacities bilaterally. 1L NS bolus in ER, solumedrol 40mg IV x 1 dose and initial dose of levaquin 750mg IV after blood cultures were obtained. Patient requiring supplemental oxygen to maintain O2 sat > 90%, patient admitted to inpatient status per Dr Palacios. Hospital course: 08/17/21: No calls overnight after admission. Breathing reportedly improved with oxygen. Dyspnea and cough continue. Intermittent nausea and diarrhea. O2 stable on minimal O2 at 2L. Vitals stable, afebrile. WBC 5.16, Hgb 12.5, Plt 222. Na 140, K 3.9, BUN 9, Creatinine 0.50, lactic acid 0.8, AST 38, alk phos 121, trop negative, albumin 3.09. CRP 11.8. ABG's stable - pH 7.45, PCO2 32, HCO3 21.9. Lung sounds diminished with crackles, rhonchi and wheezing. Patient declines nicotine patch, states she is going to try to quit smoking. Ayshafran ordered PRN for nausea. 08/18/21: No calls overnight. Cough productive this morning, continues to have some dyspnea, improved slightly per patient. No nausea, appetite improving. IS to 1000ml. Hemodynamically acceptable, afebrile, O2 sat 93% on 2L NC. WBC 5.24 , Hgb 12.5, Plt 252. Na 143, K 3.6, BUN 15, Creatinine 0.58, Mg 2.2. CRP decreased to 7.2 today. BC NGTD x 1 day, consider stopping levaquin if negative x 2 days as highly suspect viral pneumonia given WBC, afebrile. POLST updated today. Will add mucinex to improve productivity of cough. 08/19/21: Migraine, nausea, light sensitivity. BP soft this am, added parameters for BP meds, denies symptoms. Thrush noted, start nystatin swish and swallow. On room air this morning. DC levaquin as suspect viral etiology of PNA - BC negative x 2 days. Lung sounds diminished, improving. Exam otherwise unremarkable. WBC 7.62, Hgb 12.2, Plt 273. Na 142, K 3.1, BUN 16, Creatinine 0.62, Mg 1.9. CRP 3.5. Patient to be transferred to quieter negative pressure isolation room this afternoon due to PAK. 08/20/21: Nurse called last night to request additional pain medication for headache. Toradol 15mg IV Q6H started. Patient has norco on home med list, how ever no Rx since December,. Would avoid restarting opioids unless absolutely necessary. Headache and nausea improved this morning. Cough was productive overnight. No new concerns. Lung sounds diminished, no wheezing or rhonchi appreciated. Vitals stable, blood pressure improved today. WBC 8.59, Hgb 11.9, Plt 310. Na 142, K 3.3, BUN 16, [employer]atial [employer] Integrator 0.58, Ca 8.0, Mg 2.1, CRP 6.4. Patient transferred to quieter room yesterday afternoon due to headache. 08/21/21: Nursing called last night regarding headache, added aspercream and heat to neck due to muscular tension. On rounds headache now improved, no nausea this morning. She continues to cough and wheeze. Vitals stable, afebrile, normal oxygen saturation on room air. Lung sounds coarse, rhonchi and wheezing. Cough with deep breaths. Patient encouraged to sit up in the chair and move around more as she has been lying in bed. IS to 1000ml. WBC 8.39, Hgb 11.4, Plt 309. Na 140, K 3.7, BUN 17, Creatinine 0.60. CRP increased to 11.9 today. Patient to remain hospitalized for additional monitoring due to sharp elevation in inflammatory marker. Hospitalization problems and plan: # COVID-19 # COVID Pneumonia # Hypoxia # COPD # Moderate persistent asthma # Elevated CRP - 11.8 today - Supplemental O2 PRN - currently on room air - BC x 2 - NGTD x 4 days - Final dose of remdesevir today - Continue Lovenox 40mg subq daily - Continue Dexamethasone 6mg PO daily x 5 days - Continue Adjunctive tx: zinc, vitamin C, Vitamin D - Encourage IS 10x/hr while awake - Repeat CBC, CMP, CRP, Mg in am # Hypokalemia, resolved. K 3.7 today # Thrush; improving with nystatin - Continue Nystatin 5ml PO QID swish and swallow Chronic, stable conditions: # HTN - Continue clonidine 0.2mg in am, 0.1mg HS; losartan 100mg PO daily; verapamil 240mg PO daily ([facility] on hold) - parameters added - hold BP meds for BP < 100/60 # Cardiomyopathy - takes aspirin 81mg PO daily - on hold # Emphysema - takes trelegy, albuterol inhaler PRN, duonebs PRN and combivent # Moderate persistent asthma - continue singulair 10mg PO daily, flonase # Chronic maxillary sinusitis # Hypothyroidism - continue levothyroxine 150mcg PO daily # Pure hypercholesterolemia - Continue fenofibrate 145mg PO daily # GERD - Continue PPI 40mg PO BID (substitute pantoprazole), takes pepcid 40mg HS # Reactive arthritis - Continue sulfasalazine 500mg PO BID # Chronic low back pain # Depression/anxiety - continue wellbutrin 300mg PO daily, lexapro 20mg PO daily # Migraine - takes sumatriptan 100mg (1/2 tab at onset of headache, may repeat after 2 hours if needed); increase topamax to 50mg PO daily; tylenol PRN # Arthropathy associated with GI conditions other than infectious # Tobacco abuse # Obesity Hospitalization details: # FEN: Oral fluids, K 3.7 today, regular diet # PPX: Lovenox 40mg subq daily, pantoprazole 40mg PO BID # Code status: FULL CODE, POLST updated # Emergency contact: Tang [phone] # Disposition: Anticipate discharge tomorrow as patient on room air and clinically improving. Will continue inpatient hospitalization due to elevated CRP today.
[2021-08-21] MEDS ORDERED: Topiramate 25 MG Tab PO SCH ×2 (21:00→22:00)
[2021-08-22] MEDS: Ketorolac 30 MG/ML SDV IVPUSH PRN ×2 (04:58→11:36)
[2021-08-22] MEDS: Pantoprazole 40 MG Tab.CR PO SCH (06:30)
[2021-08-22] MEDS: Levothyroxine 75 MCG Tab PO SCH (06:30)
[2021-08-22] MEDS: Acetaminophen 325 MG Tab PO PRN (07:12)
[2021-08-22] MEDS: buPROPion 150 MG Tab.ER PO SCH (08:39)
[2021-08-22] MEDS: Escitalopram 10 MG Tab PO SCH (08:39)
[2021-08-22] MEDS: guaiFENesin 600 MG Tab.ER PO SCH (08:40)
[2021-08-22] MEDS: cloNIDine 0.1 MG Tab PO SCH (08:40)
[2021-08-22] MEDS: Losartan 50 MG Tab PO SCH (08:41)
[2021-08-22] MEDS: Montelukast 10 MG Tab PO SCH (08:41)
[2021-08-22] MEDS: sulfaSALAzine 500 MG Tab PO SCH (08:42)
[2021-08-22] MEDS: SUMAtriptan 25 MG Tab PO PRN (08:42)
[2021-08-22] MEDS: TRELEGY INH SCH (08:45)
[2021-08-22] MEDS: Fluticasone Propionate Nasal Spray 16 GM Bottle NASBOTH SCH (08:49)
[2021-08-22 10:15] LABS: CHLORIDE,CL 104 mmol/L (98-107); SODIUM,NA 141 mmol/L (136-145)
[2021-08-22] MEDS: Nystatin Susp 100,000 Unit/ML 5 ML UD Cup PO SCH ×2 (11:35→14:11)
[2021-08-22] MEDS: Zinc (Zinc Gluconate) 50 MG Tab PO SCH (11:35)
[2021-08-22] MEDS: Cholecalciferol (Vitamin D3) 25 MCG Tab PO SCH (11:35)
[2021-08-22] MEDS: Ascorbic Acid 500 MG Tab PO SCH (11:36)
[2021-08-22] MEDS: Enoxaparin 40 MG/0.4 ML Syringe SUBCUT SCH (11:38)
[2021-08-22] MEDS ORDERED: predniSONE 20 MG Tab PO ONE (12:49)
[2021-08-22] MEDS ORDERED: predniSONE 10 MG Tab PO SCH (13:00)
--- NOTE | 2021-08-22 13:37 | PCM.DCSUM1 ---
Discharge Summary - Hospital Course Free Text/Narrative:: Date of admission: 08/16/21 Date of discharge: 08/22/21 Admission diagnoses: # COVID-19 # COVID Pneumonia # Hypoxia # COPD # Moderate persistent asthma # Elevated CRP # Hypokalemia, resolved. # Thrush Discharge diagnoses: # HTN - Continue clonidine 0.2mg in am, 0.1mg HS; losartan 100mg PO daily; verapamil 240mg PO daily (CCB on hold) # Cardiomyopathy - takes aspirin 81mg PO daily - on hold # Emphysema - takes trelegy, albuterol inhaler PRN, duonebs PRN and combivent # Moderate persistent asthma - continue singulair 10mg PO daily, flonase # Chronic maxillary sinusitis # Hypothyroidism - continue levothyroxine 150mcg PO daily # Pure hypercholesterolemia - Continue fenofibrate 145mg PO daily # GERD - Continue PPI 40mg PO BID (substitute pantoprazole), takes pepcid 40mg HS # Reactive arthritis - Continue sulfasalazine 500mg PO BID # Chronic low back pain # Depression/anxiety - continue wellbutrin 300mg PO daily, lexapro 20mg PO daily # Migraine - takes sumatriptan 100mg (1/2 tab at onset of headache, may repeat after 2 hours if needed); increase topamax to 50mg PO daily; tylenol PRN # Arthropathy associated with GI conditions other than infectious # Tobacco abuse # Obesity HPI summary: Piper is a 61yF patient with a 5 day hx of increased dyspnea and chest tightness. Patient was started on a medrol dose pack for bronchitis on 08/11. Initial COVID test was negative on 08/08/21, COVID test was positive on 08/15/21 and patient received monoclonal antibody treatment at [facility] yesterday prior to presenting to the ER last evening for worsening dyspnea r/t COVID-19. PMH includes emphysema, moderate persistent asthma and current smoking, though patient indicates that she is now trying to quit. ED course: EKG NSR. D-dimer 597, CTA negative for PE - indicated ground glass opacities bilaterally. 1L NS bolus in ER, solumedrol 40mg IV x 1 dose and initial dose of levaquin 750mg IV after blood cultures were obtained. Patient requiring supplemental oxygen to maintain O2 sat > 90%, patient admitted to inpatient status per Dr Palacios. Hospital course: 08/17/21: No calls overnight after admission. Breathing reportedly improved with oxygen. Dyspnea and cough continue. Intermittent nausea and diarrhea. O2 stable on minimal O2 at 2L. Vitals stable, afebrile. WBC 5.16, Hgb 12.5, Plt 222. Na 140, K 3.9, BUN 9, Creatinine 0.50, lactic acid 0.8, AST 38, alk phos 121, trop negative, albumin 3.09. CRP 11.8. ABG's stable - pH 7.45, PCO2 32, HCO3 21.9. Lung sounds diminished with crackles, rhonchi and wheezing. Patient declines nicotine patch, states she is going to try to quit smoking. Tyrese ordered PRN for nausea. 08/18/21: No calls overnight. Cough productive this morning, continues to have some dyspnea, improved slightly per patient. No nausea, appetite improving. IS to 1000ml. Hemodynamically acceptable, afebrile, O2 sat 93% on 2L NC. WBC 5.24 , Hgb 12.5, Plt 252. Na 143, K 3.6, BUN 15, Creatinine 0.58, Mg 2.2. CRP decreased to 7.2 today. BC NGTD x 1 day, consider stopping levaquin if negative x 2 days as highly suspect viral pneumonia given WBC, afebrile. POLST updated today. Will add mucinex to improve productivity of cough. 08/19/21: Migraine, nausea, light sensitivity. BP soft this am, added parameters for BP meds, denies symptoms. Thrush noted, start nystatin swish and swallow. On room air this morning. DC levaquin as suspect viral etiology of PNA - BC negative x 2 days. Lung sounds diminished, improving. Exam otherwise unremarkable. WBC 7.62, Hgb 12.2, Plt 273. Na 142, K 3.1, BUN 16, Creatinine 0.62, Mg 1.9. CRP 3.5. Patient to be transferred to quieter negative pressure isolation room this afternoon due to PAK. 08/20/21: Nurse called last night to request additional pain medication for headache. Toradol 15mg IV Q6H started. Patient has norco on home med list, however no Rx since December,. Would avoid restarting opioids unless absolutely necessary. Headache and nausea improved this morning. Cough was productive overnight. No new concerns. Lung sounds diminished, no wheezing or rhonchi appreciated. Vitals stable, blood pressure improved today. WBC 8.59, Hgb 11.9, Plt 310. Na 142, K 3.3, BUN 16, Didactic Instructor 0.58, Ca 8.0, Mg 2.1, CRP 6.4. Patient transferred to quieter room yesterday afternoon due to headache. 08/21/21: Nursing called last night regarding headache, added aspercream and heat to neck due to muscular tension. On rounds headache now improved, no nausea this morning. She continues to cough and wheeze. Vitals stable, afebrile, normal oxygen saturation on room air. Lung sounds coarse, rhonchi and wheezing. Cough with deep breaths. Patient encouraged to sit up in the chair and move around more as she has been lying in bed. IS to 1000ml. WBC 8.39, Hgb 11.4, Plt 309. Na 140, K 3.7, BUN 17, Creatinine 0.60. CRP increased to 11.9 today. Patient to remain hospitalized for additional monitoring due to sharp elevation in inflammatory marker. 08/22/21: Headache improved with increased dosing of topamax 50mg PO HS per patient, she would like to continue this after discharge. Lung sounds diminish ed, slight wheeze. Vitals stable, remains afebrile, normal oxygenation on room air. Will plan to discharge patient home later today. WBC 9.21, Hgb 11.5, plt 353. Na 141, K 3.8, BUN 15, Creatinine 0.61, CRP 12.0. Patient to be discharged on tapering course of steroids due to elevated CRP, other labs, vitals and symptoms improving. Patient reports she remains somewhat fatigued, patient is no longer requiring hospitalization. Plan to discharge patient home later today to continue her recovery from COVID. Discharge and follow-up recommendations: - Discharge to home per self care with [facility] home monitoring program - New medications at discharge: - nystatin 5ml PO swish and swallow QID x 10 more days - topamax dose increased to 50mg daily - steroid taper of prednisone 40mg x 2 days, 30mg x 2 days, 20mg x 2 days and 10mg x 2 days, then stop - verapamil was held during hospitalization - patient directed to hold this until follow-up in clinic. Reconsider starting CCB. - Follow-up with Dr Gracia at [facility] on 08/26/21 at 10:30 - Discharge Data Discharge Date: 08/22/21 Discharge Disposition: Home, Self-Care 01 Condition: Good - Referral to Home Health Primary Care Physician: Silvia Ocasio NP - Patient Instructions Diet: Usual Diet as Tolerated Driving: Do Not Drive Showering/Bathing: May Shower Other/Special Instructions: - Please vegetable pick[facility] [place] Home monitoring kit at the clinic - call and they will bring this out to you. - HOLD verapamil until you follow up later this week with Silvia. - Continue incentive spirometry. - Will send a work note for Bobcat to excuse you through the end of this week - Discharge Plan *PRESCRIPTION DRUG MONITORING PROGRAM REVIEWED*: Not Applicable *COPY OF PRESCRIPTION DRUG MONITORING REPORT IN PATIENT KRISTEN: Not Applicable Home Medications: Home Meds SUMAtriptan 50 mg PO ASDIRECTED PRN 12/13/14 [History] sulfaSALAzine [Sulfasalazine] 500 mg PO BIDMEALS 12/13/14 [History] Albuterol [Ventolin HFA] 1 - 2 puff INH Q4HR PRN 08/29/15 [History] Escitalopram Oxalate 20 mg PO DAILY 06/20/17 [History] Omeprazole 20 mg PO BIDAC 06/20/17 [History] buPROPion HCL [Wellbutrin Xl] 300 mg PO DAILY 06/20/17 [History] cloNIDine HCL [Catapres] 0.2 mg PO QAM 06/20/17 [History] Aspirin 81 mg PO DAILY 08/31/18 [History] Cholecalciferol (Vitamin D3) [Vitamin D3] 2,000 unit PO DAILY 08/31/18 [History] Fenofibrate Nanocrystallized [Fenofibrate] 145 mg PO DAILY 08/31/18 [History] Fluticasone Propionate [Flonase] 1 spray NASBOTH DAILY 08/31/18 [History] Hydrocodone/Acetaminophen [HYDROcodone-Acetaminophen 5-325 MG] 7.5 - 325 mg PO Q6H PRN 08/31/18 [History] Ipratropium/Albuterol Sulfate [Combivent Respimat 20-100 Mcg] 1 puff IH Q4H PRN 08/31/18 [History] Montelukast [Singulair] 10 mg PO DAILY 08/31/18 [History] Albuterol/Ipratropium [DuoNeb 3.0-0.5 MG/3 ML] 3 ml INH QID PRN 08/16/21 [History] Benzonatate 200 mg PO Q8H PRN 08/16/21 [History] Calcium Carb, Citrate/Vit D3 [Calcium + D3 ER Tablet] 1 each PO DAILY 08/16/21 [History] Famotidine [Pepcid] 40 mg PO BEDTIME 08/16/21 [History] Fluticasone/Umeclidin/Vilanter [Trelegy Ellipta 200-62.5-25] 1 puff INH DAILY 08/16/21 [History] Levothyroxine 150 mcg PO ACBREAKFAST 08/16/21 [History] Losartan Potassium 100 mg PO DAILY 08/16/21 [History] Non-Formulary Medication [NF Drug] 1 tab PO Q48H 08/16/21 [History] Non-Formulary Medication [NF Drug] 2 applic TOP BID PRN 08/16/21 [History] Vitamin B Complex [B Complex] 1 each PO DAILY 08/16/21 [History] cloNIDine [Catapres] 0.1 mg PO QPM 08/16/21 [History] guaiFENesin [Mucinex] 600 mg PO BID 08/16/21 [History] tiZANidine [Zanaflex] 2 mg PO BEDTIME 08/16/21 [History] Nystatin [Mycostatin] 5 ml PO QID cup 08/22/21 [Rx] Topiramate [Topamax] 50 mg PO BEDTIME tablet 08/22/21 [Rx] Trolamine Salicylate/Aloe Vera [Aspercreme 10%] 1 applic TOP Q6H PRN tube 08/22/21 [Rx] predniSONE 40 mg PO .Daily Taper tablet 08/22/21 [Rx] Oxygen Therapy Mode: Room Air Referrals: Silvia Ocasio ENVIRONMENTAL INTERN [Primary Care Provider] - (Please call the [facility] to schedule an appointment with Silvia Ocasio at the end of the week. ) Basil Ricardo MD [Physician] - 08/26/21 10:30 am - Discharge Summary/Plan Comment DC Time >30 min.: Yes Total # of Minutes for Discharge Time: 35 - General Info Date of Service: 08/22/21 Functional Status: Reports: Pain Controlled (headaches continue, more tolerable), Tolerating Diet, Ambulating, Urinating, Incentive Spirometry (1250ml). Denies: New Symptoms - Review of Systems General: Reports: Fatigue. Denies: Fever, Chills HEENT: Reports: Headaches Pulmonary: Reports: Cough, Sputum. Denies: Shortness of Breath, Wheezing Cardiovascular: Reports: Dyspnea on Exertion. Denies: Edema Gastrointestinal: Reports: No Symptoms. Denies: Abdominal Pain, Decreased Appetite, Nausea Genitourinary: Reports: No Symptoms Musculoskeletal: Reports: No Symptoms Skin: Reports: No Symptoms Neurological: Reports: Headache (chronic ) Psychiatric: Reports: No Symptoms - Patient Data Vitals - Most Recent: Last Vital Signs Temp 98.1 F 08/22/21 05:16 Pulse 74 08/22/21 05:16 Resp 18 08/22/21 05:16 BP 135/94 H 08/22/21 08:41 Pulse Ox 92 L 08/22/21 05:16 Weight - Most Recent: 184 lb I&O - Last 24 hours: Intake & Output 08/21/21 08/22/21 08/22/21 22:59 06:59 14:59 Intake Total 200 100 Balance 200 100 Lab Results - Last 24 hrs: Laboratory Results - last 24 hr 08/22/21 08/22/21 Range/Units 09:35 09:35 WBC 9.21 (5.00-10.00) 10^3/uL RBC 4.39 (3.80-5.50) 10^6/uL Hgb 11.5 L (12.0-16.0) g/dL Hct 35.9 L (37.0-47.0) % MCV 81.8 L (82.0-92.0) fL MCH 26.2 L (27.0-31.0) pg MCHC 32.0 (32.0-36.0) g/dL RDW 15.6 H (11.5-14.5) % Plt Count 353 (150-400) 10^3/uL MPV 9.2 (7.4-10.4) fL Immature Gran % (Auto) 0.9 (0.0-5.0) % Neut % (Auto) 69.1 (50.0-70.0) % Lymph % (Auto) 19.7 L (20.0-40.0) % [place] % (Auto) 9.9 H (2.0-8.0) % Eos % (Auto) 0.1 L (1.0-3.0) % Baso % (Auto) 0.3 (0.0-1.0) % Neut # (Auto) 6.37 (2.50-7.00) 10^3/uL Lymph # (Auto) 1.81 (1.00-4.00) 10^3/uL [place] # (Auto) 0.91 H (0.10-0.80) 10^3/uL Eos # (Auto) 0.01 L (0.10-0.30) 10^3/uL Baso # (Auto) 0.03 (0.00-0.10) 10^3/uL Immature Gran # (Auto) 0.08 (0.00-0.50) 10^3/uL Platelet Estimate Adequate Sodium 141 (136-145) mmol/L Potassium 3.8 (3.5-5.1) mmol/L Chloride 104 (98-107) mmol/L Carbon Dioxide 26.8 (21.0-32.0) mmol/L Anion Gap 14.0 (5-15) mmol/L BUN 15 (7-18) mg/dL Creatinine 0.61 (0.51-1.17) mg/dL Est Cr Clr Drug Dosing 86.04 mL/min Estimated GFR (MDRD) > 60 mL/min Glucose 115 (70-140) mg/dL Calcium 8.4 L (8.7-10.3) mg/dL Total Bilirubin 0.5 (0.2-1.0) mg/dL AST 27 (15-37) U/L ALT 47 (14-63) U/L Alkaline Phosphatase 106 (46-116) U/L C-Reactive Protein 12.0 H (0.0-0.9) mg/dL Total Protein 6.9 (6.4-8.2) g/dL Albumin 2.74 L (3.40-5.00) g/dL REJI Results - Last 24 hrs: Microbiology 08/16/21 23:55 Aerobic Blood Culture - Final Blood - Venous - Lab Draw NO GROWTH AFTER 5 DAYS Anaerobic Blood Culture - Final NO GROWTH AFTER 5 DAYS 08/16/21 23:40 Aerobic Blood Culture - Final Blood - Venous NO GROWTH AFTER 5 DAYS Anaerobic Blood Culture - Final NO GROWTH AFTER 5 DAYS Med Orders - Current: Current Medications Acetaminophen (Acetaminophen 325 Mg Tab) 650 mg PO Q4H PRN PRN Reason: Pain or Fever Last Admin: 08/22/21 07:12 Dose: 650 mg Documented by: Albuterol (Albuterol 8 Gm Inhaler) 0 gm INH Q4HR PRN PRN Reason: Dyspnea Last Admin: 08/21/21 12:24 Dose: 2 puff Documented by: Albuterol/Ipratropium (Albuterol/Ipratropium 3.0-0.5 Mg/3 Ml Neb Soln) 3 ml NEB Q4H PRN PRN Reason: Shortness of Breath Last Admin: 08/17/21 00:31 Dose: 3 ml Documented by: Ascorbic Acid (Ascorbic Acid 500 Mg Tab) 1,000 mg PO BID [facility] Last Admin: 08/22/21 11:36 Dose: Not Given Documented by: Bupropion HCl (Bupropion 150 Mg Tab.Er) 300 mg PO DAILY [facility] Last Admin: 08/22/21 08:39 Dose: 300 mg Documented by: Cholecalciferol (Cholecalciferol (Vitamin D3) 25 Mcg Tab) 25 mcg PO DAILY [facility] Last Admin: 08/22/21 11:35 Dose: 25 mcg Documented by: Clonidine HCl (Clonidine 0.1 Mg Tab) 0.1 mg PO QPM [facility] Last Admin: 08/21/21 22:08 Dose: 0.1 mg Documented by: Clonidine HCl (Clonidine 0.1 Mg Tab) 0.2 mg PO QAM [facility] Last Admin: 08/22/21 08:40 Dose: 0.2 mg Documented by: Enoxaparin Sodium (Enoxaparin 40 Mg/0.4 Ml Syringe) 40 mg SUBCUT Q24H [facility] Last Admin: 08/22/21 11:38 Dose: 40 mg Documented by: Escitalopram Oxalate (Escitalopram 10 Mg Tab) 20 mg PO DAILY [facility] Last Admin: 08/22/21 08:39 Dose: 20 mg Documented by: Fluticasone Propionate (Fluticasone Propionate Nasal [place] 16 Gm Bottle) 0 gm NASBOTH DAILY [facility] Last Admin: 08/22/21 08:49 Dose: 1 spray Documented by: Guaifenesin (Guaifenesin 600 Mg Tab.Er) 600 mg PO BID [facility] Last Admin: 08/22/21 08:40 Dose: 600 mg Documented by: Sodium Chloride (Normal Saline) 50 mls @ 100 mls/hr IV ASDIRECTED [facility] Last Admin: 08/17/21 01:13 Dose: 100 mls/hr Documented by: Ketorolac Tromethamine (Ketorolac 30 Mg/Ml Sdv) 15 mg IVPUSH Q6H PRN PRN Reason: Pain Stop: 08/25/21 00:14 Last Admin: 08/22/21 11:36 Dose: 15 mg Documented by: Levothyroxine Sodium (Levothyroxine 75 Mcg Tab) 150 mcg PO ACBREAKFAST [facility] Last Admin: 08/22/21 06:30 Dose: 150 mcg Documented by: Losartan Potassium (Losartan 50 Mg Tab) 100 mg PO DAILY [facility] Last Admin: 08/22/21 08:41 Dose: 100 mg Documented by: Montelukast Sodium (Montelukast 10 Mg Tab) 10 mg PO DAILY [facility] Last Admin: 08/22/21 08:41 Dose: 10 mg Documented by: Nystatin (Nystatin Susp 100,000 Unit/Ml 5 Ml Ud Cup) 5 ml PO QID [facility] Last Admin: 08/22/21 11:35 Dose: 5 ml Documented by: Ondansetron HCl (Ondansetron 4 Mg Tab.Dis) 4 mg PO Q6H PRN PRN Reason: Nausea/Vomiting Last Admin: 08/20/21 09:29 Dose: 4 mg Documented by: Pantoprazole Sodium (Pantoprazole 40 Mg Tab.Cr) 40 mg PO BIDAC [facility] Last Admin: 08/22/21 06:30 Dose: 40 mg Documented by: Ptom- Viktorlegy (Inhaler) 1 each INH DAILY [facility] Last Admin: 08/22/21 08:45 Dose: 1 each Documented by: Prednisone (Prednisone 20 Mg Tab) 40 mg PO ONETIME ONE Stop: 08/22/21 12:50 Prednisone (Prednisone 10 Mg Tab) 40 mg PO .Daily Taper [facility] Sulfasalazine (Sulfasalazine 500 Mg Tab) 500 mg PO BIDMEALS [facility] Last Admin: 08/22/21 08:42 Dose: 500 mg Documented by: Sumatriptan Succinate (Sumatriptan 25 Mg Tab) 50 mg PO ASDIRECTED PRN PRN Reason: Headache Last Admin: 08/22/21 08:42 Dose: 50 mg Documented by: Topiramate (Topiramate 25 Mg Tab) 50 mg PO BEDTIME [facility] Last Admin: 08/21/21 22:08 Dose: 50 mg Documented by: Trolamine Salicylate (Trolamine Salicylate/Aloe Vera 10% Crm 85 Gm Tube) 0 gm TOP Q6H PRN PRN Reason: Pain Last Admin: 08/21/21 06:58 Dose: 1 applic Documented by: Zinc Gluconate (Zinc (Zinc Gluconate) 50 Mg Tab) 50 mg PO DAILY [facility] Last Admin: 08/22/21 11:35 Dose: 50 mg Documented by: Discontinued Medications Dexamethasone (Dexamethasone 4 Mg Tab) 6 mg PO DAILY [facility] Stop: 08/21/21 12:00 Last Admin: 08/21/21 09:49 Dose: 6 mg Documented by: Sodium Chloride (Normal Saline) 50 mls @ 200 mls/min IV ASDIRECTED [facility] Last Admin: 08/16/21 21:24 Dose: 200 mls/min Documented by: Sodium Chloride (Normal Saline) 1,000 mls @ 999 mls/hr IV .BOLUS ONE Stop: 08/16/21 22:06 Last Admin: 08/16/21 21:26 Dose: 999 mls/hr Documented by: Levofloxacin/Dextrose 500 mg/ (Premix) 100 mls @ 100 mls/hr IV ONETIME ONE Stop: 08/16/21 23:51 Last Admin: 08/16/21 23:06 Dose: 100 mls/hr Documented by: Sodium Chloride (Normal Saline) Confirm Administered Dose 50 mls @ as directed .ROUTE .STK-MED ONE Stop: 08/17/21 00:26 Last Admin: 08/17/21 00:51 Dose: Not Given Documented by: Remdesivir 200 mg/ Sodium (Chloride) 250 mls @ 250 mls/hr IV ONETIME ONE Stop: 08/17/21 10:48 Last Admin: 08/17/21 13:33 Dose: 250 mls/hr Documented by: Levofloxacin/Dextrose 750 mg/ (Premix) 150 mls @ 100 mls/hr IV Q24H [facility] Last Admin: 08/18/21 20:57 Dose: 100 mls/hr Documented by: Remdesivir 100 mg/ Sodium (Chloride) 250 mls @ 250 mls/hr IV Q24H [facility] Stop: 08/21/21 13:00 Last Admin: 08/21/21 12:27 Dose: 250 mls/hr Documented by: Iopamidol (Iopamidol 755 Mg/Ml 75 Ml Bottle) 75 ml IVPUSH ONETIME ONE Stop: 08/16/21 20:36 Last Admin: 08/16/21 21:24 Dose: 75 ml Documented by: Methylprednisolone Sodium Succinate (Methylprednisolone Sodium Succinate 125 Mg/2 Ml Sdv) 40 mg IVPUSH ONETIME ONE Stop: 08/16/21 22:53 Last Admin: 08/16/21 23:01 Dose: 40 mg Documented by: Non-Formulary Medication (Ipratropium/Albuterol Sulfate [Combivent Respimat 20- 100 Mcg]) 1 puff IH Q4H PRN PRN Reason: Shortness of Breath Potassium Chloride (Potassium Chloride 20 Meq Tab.Er) 40 meq PO ONETIME ONE Stop: 08/19/21 11:14 Last Admin: 08/19/21 11:34 Dose: 40 meq Documented by: Potassium Chloride (Potassium Chloride 20 Meq Tab.Er) 40 meq PO ONETIME ONE Stop: 08/20/21 09:35 Last Admin: 08/20/21 09:54 Dose: 40 meq Documented by: Sodium Chloride (Sodium Chloride 0.9% 10 Ml Syringe) 10 ml FLUSH Q8HR PRN PRN Reason: keep vein open Last Admin: 08/16/21 20:27 Dose: 10 ml Documented by: Topiramate (Topiramate 25 Mg Tab) 25 mg PO BEDTIME [facility] Last Admin: 08/20/21 20:07 Dose: 25 mg Documented by: Topiramate (Topiramate 25 Mg Tab) 50 mg PO BEDTIME [facility] - Exam Quality Assessment: Reports: DVT Prophylaxis. Denies: Supplemental Oxygen General: Reports: Alert, Oriented, Cooperative, No Acute Distress HEENT: Reports: Pupils Equal, Pupils Reactive, Mucous Membr. Moist/[place]: Reports: Supple, Trachea Midline Lungs: Reports: Decreased Breath Sounds, Rhonchi (mild), Wheezing (fine) Cardiovascular: Reports: Regular Rate, Regular Rhythm, No Murmurs GI/Abdominal Exam: Normal Bowel Sounds, Soft, Non-Tender, No Distention (Female) Exam: Deferred Rectal (Female) Exam: Deferred Back Exam: Reports: Normal Inspection, Full Range of Motion Extremities: Normal Inspection, Normal Range of Motion, Non-Tender, No Pedal Edema, Normal Capillary Refill Skin: Reports: Warm, Dry, Intact Neurological: Reports: No New Focal Deficit Psy/Mental Status: Reports: Alert, Normal Affect, Normal Mood
== END 2021-08-22 15:17 | disposition home or self-care (01) | DRG 137 ==
LOC: KA.ED 20:00 → KA.MS 22:54 → UNDOADMIN 23:22 → KA.MS 08-19 17:52
PROVIDERS: ADMIT Family Medicine; ATTEND Family Medicine
PROC: 8E0ZXY6 Isolation (ICD-10-PCS; principal; 2021-08-16)
PROC: XW033E5 Introduction of Remdesivir Anti-infective into Peripheral Vein, Percutaneous Approach, New Technology Group 5 (ICD-10-PCS; principal; 2021-08-16)
PROC: 3E0DX3Z Introduction of Anti-inflammatory into Mouth and Pharynx, External Approach (ICD-10-PCS; principal; 2021-08-16)
DX: U07.1 COVID-19 (principal); J12.82 Pneumonia due to coronavirus disease 2019; H54.7 Unspecified visual loss; E78.00 Pure hypercholesterolemia, unspecified; I10 Essential (primary) hypertension; J43.9 Emphysema, unspecified; K21.9 Gastro-esophageal reflux disease without esophagitis; K44.9 Diaphragmatic hernia without obstruction or gangrene; Z87.11 Personal history of peptic ulcer disease; N93.8 Other specified abnormal uterine and vaginal bleeding; M19.90 Unspecified osteoarthritis, unspecified site; G89.29 Other chronic pain; M54.9 Dorsalgia, unspecified; M06.9 Rheumatoid arthritis, unspecified; G43.909 Migraine, unspecified, not intractable, without status migrainosus; F41.9 Anxiety disorder, unspecified; F32.A Depression, unspecified; F17.210 Nicotine dependence, cigarettes, uncomplicated; I42.9 Cardiomyopathy, unspecified; J32.0 Chronic maxillary sinusitis; M54.50 Low back pain, unspecified; E03.9 Hypothyroidism, unspecified; E66.9 Obesity, unspecified; E55.9 Vitamin D deficiency, unspecified; Z86.16 Personal history of COVID-19; Z86.19 Personal history of other infectious and parasitic diseases; Z90.49 Acquired absence of other specified parts of digestive tract; Z90.710 Acquired absence of both cervix and uterus; Z88.1 Allergy status to other antibiotic agents; Z88.8 Allergy status to other drugs, medicaments and biological substances; Z79.899 Other long term (current) drug therapy; Z79.890 Hormone replacement therapy; Z79.82 Long term (current) use of aspirin; E87.6 Hypokalemia; B37.9 Candidiasis, unspecified; Z68.30 Body mass index [BMI] 30.0-30.9, adult
CPT/HCPCS: 36415; 36600; 71275; 80048; 80053; 80076; 82803; 83605; 83735; 84484; 85025; 85379; 85610; 85730; 86140; 87040; 93005; 99284; 99285-25; A9270-GY; J1650; J1885; J1956; J2930; J7030; J7050; J7512; J7620-GY; J8540; Q9967

== ENCOUNTER 2023-11-22 18:16 | Emergency (ER) | payer BC ==
[2023-11-22] MEDS: Sodium Chloride 0.9% 1,000 ML IV ONE (18:50)
[2023-11-22] MEDS: Sodium Chloride 0.9% 1,000 ML ONE (18:50)
[2023-11-22 18:55] LABS: BASOPHILS ABSOLUTE AUTO 0.02 10^3/uL (0.00-0.10); BASOPHILS PERCENT AUTO 0.2 % (0.0-1.0); EOSINOPHILS ABSOLUTE AUTO 0.01 10^3/uL (0.10-0.30); EOSINOPHILS PERCENT AUTO 0.1 % (1.0-3.0); HEMATOCRIT 42.1 % (37.0-47.0); HEMOGLOBIN 13.2 g/dL (12.0-16.0); IMMATURE GRAN ABSOLUTE AUTO 0.13 10^3/uL (0.00-0.50); IMMATURE GRAN PERCENT AUTO 1.1 % (0.0-5.0); LYMPHOCYTES ABSOLUTE AUTO 3.04 10^3/uL (1.00-4.00); LYMPHOCYTES PERCENT AUTO 25.2 % (20.0-40.0); MEAN CORPUSCULAR HEMOGLOBIN 26.2 pg (27.0-31.0); MEAN CORPUSCULAR HGB CONC 31.4 g/dL (32.0-36.0); MEAN CORPUSCULAR VOLUME 83.7 fL (82.0-92.0); MONOCYTES ABSOLUTE AUTO 1.22 10^3/uL (0.10-0.80); MONOCYTES PERCENT AUTO 10.1 % (2.0-8.0); NEUTROPHILS ABSOLUTE AUTO 7.64 10^3/uL (2.50-7.00); NEUTROPHILS PERCENT AUTO 63.3 % (50.0-70.0); PLATELET COUNT,PLT 400 10^3/uL (150-400); RED BLOOD CELL COUNT 5.03 10^6/uL (3.80-5.50); WHITE BLOOD CELL COUNT,WBC 12.06 10^3/uL (5.00-10.00)
[2023-11-22 19:14] LABS: ALBUMIN 3.3 g/dL (3.40-5.00); ANION GAP 17.7 mmol/L (5-15); BILIRUBIN TOTAL 0.4 mg/dL (0.2-1.0); CALCIUM 8.6 mg/dL (8.7-10.3); CARBON DIOXIDE,CO2 23.6 mmol/L (21.0-32.0); CREATININE 0.95 mg/dL (0.51-1.17); EST CRCL DRUG DOSING (CG) 53.83 mL/min; POTASSIUM,K 3.3 mmol/L (3.5-5.1); PROTEIN TOTAL,TP 6.7 g/dL (6.4-8.2)
[2023-11-22 19:33] LABS: INFLUENZA A NAA NEGATIVE (NEGATIVE); INFLUENZA B NAA NEGATIVE (NEGATIVE); RESPIRATORY SYNCYTIAL VIR NAA NEGATIVE (NEGATIVE)
[2023-11-22 19:34] LABS: CORONAVIRUS COVID-19 NAA NEGATIVE (NEGATIVE)
[2023-11-22] MEDS: Potassium Chloride 20 MEQ Tab.ER PO ONE (19:35)
== END 2023-11-22 19:50 | disposition home or self-care (01) ==
LOC: KA.ED 18:16
DX: A08.4 Viral intestinal infection, unspecified (principal); E86.0 Dehydration; E87.6 Hypokalemia; I10 Essential (primary) hypertension; E78.00 Pure hypercholesterolemia, unspecified; J44.9 Chronic obstructive pulmonary disease, unspecified; K21.9 Gastro-esophageal reflux disease without esophagitis; Z86.16 Personal history of COVID-19; E03.9 Hypothyroidism, unspecified; Z90.49 Acquired absence of other specified parts of digestive tract; Z90.710 Acquired absence of both cervix and uterus; Z87.891 Personal history of nicotine dependence; Z79.899 Other long term (current) drug therapy; Z79.82 Long term (current) use of aspirin; Z79.84 Long term (current) use of oral hypoglycemic drugs; Z88.0 Allergy status to penicillin; Z88.5 Allergy status to narcotic agent; Z88.1 Allergy status to other antibiotic agents; Z88.8 Allergy status to other drugs, medicaments and biological substances
CPT/HCPCS: 0241U; 36415; 80053; 83690; 85025; 96360; 99284; A9270; J7030

== ENCOUNTER 2024-11-22 19:37 | Emergency (ER) | payer BC, MEDICARE ==
[2024-11-22] MEDS: Acetaminophen 500 MG Tab PO ONE (20:51)
== END 2024-11-22 20:35 | disposition home or self-care (01) ==
LOC: KA.ED 19:37
DX: S51.811A Laceration without foreign body of right forearm, initial encounter (principal); I10 Essential (primary) hypertension; E78.00 Pure hypercholesterolemia, unspecified; J44.89 Other specified chronic obstructive pulmonary disease; K21.9 Gastro-esophageal reflux disease without esophagitis; M19.90 Unspecified osteoarthritis, unspecified site; E03.9 Hypothyroidism, unspecified; E66.9 Obesity, unspecified; Z86.16 Personal history of COVID-19; Z90.49 Acquired absence of other specified parts of digestive tract; Z90.710 Acquired absence of both cervix and uterus; Z88.0 Allergy status to penicillin; Z88.5 Allergy status to narcotic agent; Z88.8 Allergy status to other drugs, medicaments and biological substances; Z79.51 Long term (current) use of inhaled steroids; Z79.82 Long term (current) use of aspirin; Z79.899 Other long term (current) drug therapy; W22.8XXA Striking against or struck by other objects, initial encounter; Y99.0 Civilian activity done for income or pay
CPT/HCPCS: 99282; 99283; A9270-GY

== ENCOUNTER 2025-01-13 10:17 | Day surgery (SDC) | payer BC, MEDICARE ==
[2025-01-13] MEDS ORDERED: Sodium Chloride 0.9% 10 ML Syringe FLUSH PRN (10:30)
[2025-01-13] MEDS ORDERED: Midazolam 1 MG/ML 2 ML SDV ONE (10:33)
[2025-01-13] MEDS ORDERED: Propofol 200 MG/20 ML SDV ONE (10:34)
[2025-01-13] MEDS: Lactated Ringers 1,000 ML IV SCH (10:35)
== END 2025-01-13 12:55 | disposition home or self-care (01) ==
LOC: KA.SDS 10:17
PROVIDERS: ATTEND Family Medicine
DX: Z12.11 Encounter for screening for malignant neoplasm of colon (principal); K57.30 Diverticulosis of large intestine without perforation or abscess without bleeding; K64.8 Other hemorrhoids; R93.89 Abnormal findings on diagnostic imaging of other specified body structures; F41.9 Anxiety disorder, unspecified; G43.909 Migraine, unspecified, not intractable, without status migrainosus; I10 Essential (primary) hypertension; E66.9 Obesity, unspecified; E03.9 Hypothyroidism, unspecified; Z68.32 Body mass index [BMI] 32.0-32.9, adult; Z79.899 Other long term (current) drug therapy; Z79.890 Hormone replacement therapy
CPT/HCPCS: 00811; J2250; J2704; J7120